=== PATIENT | male | born 1950 | race Caucasian/White ===

== ENCOUNTER 2017-06-09 22:19 | Emergency (ER) | payer MEDICARE ==
[2017-06-09] MEDS ORDERED: MORPHINE IV ONE (23:16)
[2017-06-09] MEDS ORDERED: TORADOL IV ONE (23:16)
[2017-06-09] MEDS ORDERED: ZOFRAN IV ONE (23:17)
[2017-06-09] MEDS ORDERED: LEVAQUIN 500MG/100ML 500 MG/100 ML BAG IV ONE (23:17)
--- NOTE | 2017-06-09 23:19 | Emergency Department Report ---
ED Male HPI - General Chief complaint: Urogenital-Male Stated complaint: URINATING BLOOD Time Seen by Provider: 06/09/17 23:11 Source: EMS, network control technician Mode of arrival: Stretcher Limitations: No Limitations - History of Present Illness Initial comments: 66 YO MALE WITH ONE H/O HEMATURIA AND BLADDER PAIN. PAIN IS 10/10. 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 MAURITANIAN -: Sudden, This afternoon Location: abdomen (SUPRAPUBIC) Radiation: none Severity scale (0 -10): 10 Quality: aching, burning, stabbing Consistency: intermittent Improves with: urination Worsens with: urination blood in urine, dysuria - Related Data Sexually active: Yes Allergies Allergy/AdvReac Type Severity Reaction Status Date / Time pollen extracts Allergy Mild Itching Verified 06/09/17 22:48 ED Review of Systems ROS: Stated complaint: URINATING BLOOD Other details as noted in HPI ED Past Medical Hx - Past Medical History Previous Medical History?: No - Surgical History Past Surgical History?: No - Social History Smoking Status: Current Every Day Smoker Substance Use Type: Alcohol ED Physical Exam - General Limitations: No Limitations General appearance: alert, in distress (SECONDARY TO BLADER SPASMS) - Head Head exam: Present: atraumatic, normocephalic - Eye Eye exam: Present: normal appearance, EOMI - ENT ENT exam: Present: mucous membranes moist - Neck Neck exam: Present: normal inspection, full ROM - Respiratory Respiratory exam: Present: normal lung sounds bilaterally. Absent: respiratory distress - Cardiovascular Cardiovascular Exam: Present: regular rate, normal rhythm. Absent: systolic murmur, diastolic murmur, rubs, gallop - GI/Abdominal GI/Abdominal exam: Present: soft, normal bowel sounds - Rectal Rectal exam: Present: deferred - exam: Absent: circumcision External exam: Present: bleeding (FROM PENIS) - Extremities Exam Extremities exam: Present: normal inspection, full ROM - Back Exam Back exam: Present: normal inspection - Neurological Exam Neurological exam: Present: alert, oriented X3 - Psychiatric Psychiatric exam: Present: normal affect, normal mood - Skin Skin exam: Present: warm, dry, intact, normal color. Absent: rash ED Course Vital Signs 06/09/17 06/10/17 06/10/17 22:56 00:00 01:00 Temperature 98 F Pulse Rate 82 66 74 Respiratory 17 12 14 Rate Blood Pressure 138/79 135/85 Blood Pressure 148/110 [Left] O2 Sat by Pulse 98 97 98 Oximetry 06/10/17 06/10/17 06/10/17 02:01 03:01 04:00 Temperature Pulse Rate 74 111 H 77 Respiratory 10 L 14 11 L Rate Blood Pressure 126/74 153/92 156/84 Blood Pressure [Left] O2 Sat by Pulse 98 99 96 Oximetry 06/10/17 06/10/17 06/10/17 05:37 06:00 07:00 Temperature Pulse Rate 106 H 74 81 Respiratory 21 11 L 14 Rate Blood Pressure 123/71 151/78 113/74 Blood Pressure [Left] O2 Sat by Pulse 98 97 97 Oximetry - Reevaluation(s) Reevaluation #1: 06/10/17 03:[address] SCAN ED Medical Decision Making - Lab Data Result diagrams: 06/09/17 23:25 06/09/17 23:25 - Radiology Data Radiology results: report reviewed (CT ABD/PELVIS; LARGE LIVER MASS PROBABLY HEMANGIOMA) Critical care attestation.: If time is entered above; I have spent that time in minutes in the direct care of this critically ill patient, excluding procedure time. ED Disposition Clinical Impression: Bladder spasms Hematuria Qualifiers: Hematuria type: unspecified type Qualified Code(s): R31.9 - Hematuria, unspecified Disposition: OP ADMIT IP TO THIS HOSP Is pt being admited?: Yes Does the pt Need Aspirin: No Condition: Stable Referrals: GARIMA PRESLEY MD [Primary Care Provider] - 3-5 Days Time of Disposition: 08:20 (DR VEGA WS PAGED AND CASE REVIEWED AND HE DEJUAN ADMIT THE PT TO THE HOSPITAL)
[2017-06-09] MEDS ORDERED: PYRIDIUM PO ONE (23:22)
[2017-06-09 23:28] LABS: Bilirubin,Urine NEG (Negative); Blood,Urine LG (Negative); Color,Urine Red (Yellow); Nitrite,Urine NEG (Negative); Urobilinogen,Urine < 2.0 mg/dL (<2.0)
[2017-06-09 23:32] LABS: RBC,Urine > 182.0 /HPF (0.0-6.0)
[2017-06-09 23:44] LABS: Basophils % (Auto) 0.5 % (0.0-1.8); Eosinophils # (Auto) 0.4 K/mm3 (0.0-0.4); Eosinophils % (Auto) 4.5 % (0.0-4.3); Hematocrit 45.2 % (35.5-45.6); Hemoglobin 14.8 gm/dl (11.8-15.2); Lymphocytes # (Auto) 1.3 K/mm3 (1.2-5.4); Lymphocytes % (Auto) 16.4 % (13.4-35.0); Mean Corpuscular HGB Conc 33 % (32-34); Mean Corpuscular Volume 78 fl (84-94); Monocytes # (Auto) 0.4 K/mm3 (0.0-0.8); Monocytes % (Auto) 5.3 % (0.0-7.3); Platelet Count 189 K/mm3 (140-440); Red Blood Count 5.82 M/mm3 (3.65-5.03); Red Cell Distribution Width 14.4 % (13.2-15.2)
[2017-06-09 23:50] LABS: Mean Corpuscular Hemoglobin 25 pg (28-32)
[2017-06-10 00:08] LABS: Alanine Aminotransferase 15 units/L (7-56); Albumin 3.8 g/dL (3.9-5); BUN/Creatinine Ratio 20; Blood Urea Nitrogen 12 mg/dL (9-20); Calcium 8.6 mg/dL (8.4-10.2); Hemolysis Index 36
[2017-06-10] MEDS ORDERED: NACL 0.9% IR ONE (01:05)
[2017-06-10] MEDS ORDERED: CARDIZEM/D5W 100MG/100ML 100 MG/100 ML BAG IV SCH (03:00)
[2017-06-10] MEDS ORDERED: NACL ONE (04:54)
--- NOTE | 2017-06-10 06:30 | Cat Scan Report ---
FINAL REPORT PROCEDURE: CT ABDOMEN PELVIS W CON TECHNIQUE: Computerized axial tomography of the abdomen and pelvis was performed after the IV injection of iodinated nonionic contrast. HISTORY: ABD PIN,HEMATURIA GROSS COMPARISON: No prior studies are available for comparison. FINDINGS: Visualized lower thorax: There is atelectasis at the right lung base.. Liver: There is a large hypodense mass in the right lobe of the liver measuring up to 7.8 centimeters in diameter. There is peripheral enhancement indicating most likely etiology is a large hemangioma.. Spleen: Normal size and attenuation. Gallbladder and biliary system: Normal. Pancreas: Normal. Adrenals: Normal. Kidneys: Normal. GI tract: There is no bowel obstruction, colitis or enteritis. The appendix is normal.. Lymph nodes and mesentery: Normal. Vasculature: Normal. Bladder: There is dense material in the urinary bladder suggesting recent hemorrhage. There is no obvious mass. Subtle mass not excluded.. Reproductive organs: Prostate gland is enlarged and heterogeneous.. Peritoneum: There is no ascites or free air, abscess or adenopathy.. Musculoskeletal structures: No significant abnormality. Other: None. IMPRESSION: There is a large hypodense mass in the right lobe of the liver measuring up to 7.8 centimeters in diameter. There is peripheral enhancement indicating most likely etiology is a large hemangioma.. There is no bowel obstruction, colitis or enteritis. The appendix is normal.. There is dense material in the urinary bladder suggesting recent hemorrhage. There is no obvious mass. Subtle mass not excluded.. Prostate gland is enlarged and heterogeneous.. There is no ascites or free air, abscess or adenopathy..
[2017-06-10] MEDS ORDERED: MORPHINE IV PRN (08:19)
[2017-06-10] MEDS ORDERED: ZOFRAN IV PRN (08:19)
[2017-06-10] MEDS ORDERED: MILK OF MAGNESIA PO PRN (08:19)
[2017-06-10] MEDS ORDERED: DULCOLAX PR PRN (08:19)
[2017-06-10] MEDS ORDERED: TYLENOL PO PRN (08:19)
--- NOTE | 2017-06-10 08:23 | History and Physical Report ---
History of Present Illness Date of examination: 06/10/17 Date of admission: 06/10/16 Chief complaint: Urinary retention Bloody urine History of present illness: Patient is 66 yo presented with urinary retention, gross hematuria Past History Past Medical History: No medical history Past Surgical History: No surgical history Social history: , smoking, alcohol abuse, full code Family history: no significant family history Medications and Allergies Allergies Allergy/AdvReac Type Severity Reaction Status Date / Time pollen extracts Allergy Mild Itching Verified 06/09/17 22:48 Home Medications Medication Instructions Recorded Confirmed Last Taken Type Unobtainable 06/10/17 06/10/17 Unknown History Exam - Physical Exam Narrative exam: GEN APPEARANCE : Not in acute distress, HEENT: Atraumatic, Normocephalic, NECK : supple, no JVD LUNGS: Clear to auscultation bilaterally, no rales, no wheeze HEART: S1 and S2 regular, no murmurs, rubs or gallop, ABD: Soft, mild tender, non distended, normal bowel sounds EXT: No edema, no clubbing, no cyanosis NEURO: Awake,alert,oriented x 3 - Constitutional Vitals: Temp Pulse Resp BP Pulse Ox 98 F 81 14 113/74 97 06/09/17 22:56 06/10/17 07:00 06/10/17 07:00 06/10/17 07:00 06/10/17 07:00 Results - Labs CBC & Chem 7: 06/10/17 08:35 06/10/17 08:35 Labs: Abnormal lab results 06/09/17 06/09/17 06/09/17 Range/Units 23:03 23:25 23:25 RBC 5.82 H (3.65-5.03) M/mm3 MCV 78 L (84-94) fl MCH 25 L (28-32) pg Eos % (Auto) 4.5 H (0.0-4.3) % Seg Neutrophils % 73.3 H (40.0-70.0) % Creatinine 0.6 L (0.8-1.5) mg/dL Glucose 104 H (75-100) mg/dL Albumin 3.8 L (3.9-5) g/dL Urine pH 8.0 H (5.0-7.0) Assessment and Plan Urinary retention and gross hematuria. Will admit to med/surg . Patient had glez placed irrigated bringing out blood clots,and glez removed. Will insert glez. Consult Urology. Morphine iv prn for pain. DVT prophylaxis with SCDs only. Addendum: There is no Urologist credit union examiner. I called and discussed with Dr. Clark. He is not available. Staff unable to insert glez. Will cancel admission. Transfer to tertiary Center.
[2017-06-10 08:45] LABS: Hematocrit 41.1 % (35.5-45.6); Hemoglobin 13.4 gm/dl (11.8-15.2); Mean Corpuscular HGB Conc 33 % (32-34); Mean Corpuscular Volume 77 fl (84-94); Platelet Count 188 K/mm3 (140-440); Red Blood Count 5.36 M/mm3 (3.65-5.03); Red Cell Distribution Width 14.5 % (13.2-15.2)
[2017-06-10 08:46] LABS: Mean Corpuscular Hemoglobin 25 pg (28-32)
[2017-06-10] MEDS ORDERED: D5/0.45NS 1,000 ML IV SCH (09:00)
[2017-06-10 09:14] LABS: BUN/Creatinine Ratio 20; Blood Urea Nitrogen 12 mg/dL (9-20); Calcium 8.6 mg/dL (8.4-10.2); Hemolysis Index 7
[2017-06-10] MEDS ORDERED: D5/0.45NS 1,000 ML IV ONE (11:43)
--- NOTE | 2017-06-10 14:04 | Event Note ---
Patient with urinary retention, gross hematuria. No Urology coverage available today. I discussed with Dr. Clark. He is not available today. I called [facility] Transfer line to transfer out. Awaiting call back
[2017-06-10 16:15] VITALS: BP 118/78
[2017-06-10] MEDS ORDERED: MORPHINE ONE ×2 (17:22→17:23)
--- NOTE | 2017-06-10 17:36 | Event Note ---
Date: 06/10/17 Discussed with Urologist at [facility] and he has agreed to accept patient to transfer to ED at [facility].
[2017-06-10] MEDS ORDERED: MORPHINE IV ONE ×2 (18:26)
[2017-06-10] MEDS ORDERED: LEVAQUIN 500MG/100ML 500 MG/100 ML BAG IV SCH (23:00)
== END 2017-06-10 19:00 | disposition other institution (70) ==
LOC: ED 22:19 → 3A 06-10 08:19 → UNDOADMIN 06-10 08:19
DX: N32.89 Other specified disorders of bladder (principal); R31.9 Hematuria, unspecified; F17.200 Nicotine dependence, unspecified, uncomplicated; Z88.8 Allergy status to other drugs, medicaments and biological substances
CPT/HCPCS: 36415; 74177; 80048; 80053; 81001; 85025; 85027; 87086; 96365; 96375; 99285; J1885; J1956; J2270; J2405; Q9967

== ENCOUNTER 2018-12-23 19:55 | Inpatient (IN) | payer MEDICARE ==
--- NOTE | 2018-12-23 20:56 | Event Note ---
ED Screening Note ED Screening Note: Plan: 1. I think the burning that patient feels with voiding may be a bladder spasm. UA today is clear without obvious signs of infection. Urine sent for culture to be sure. Explain to patient and his family members that I would not want to give him an anticholinergic at this point as it could cause urinary retention. 2. Discussed fluid management and avoiding bladder irritants. He emptied his bladder fairly well today. 3. Return to clinic in 12 months with urinalysis and postvoid bladder scan. P atient should call return clinic if he has a new or worsening symptoms. HERE WITH ABD PAIN HX HEMATURIA/RETENTION NO HOME MEDS ETOH CIG KENAITZE SEE FAMILY This initial assessment/diagnostic orders/clinical plan/treatment(s) is/are subject to change based on patients health status, clinical progression and re- assessment by fellow clinical providers in the ED. Further treatment and workup at subsequent clinical providers discretion. Patient/guardian urged not to elope from the ED as their condition may be serious if not clinically assessed and managed. Initial orders include: [facility] URINE/CULTURE
[2018-12-23 21:26] LABS: Basophils % (Auto) 0.1 % (0.0-1.8); Eosinophils # (Auto) 0.1 K/mm3 (0.0-0.4); Eosinophils % (Auto) 0.6 % (0.0-4.3); Hematocrit 45.9 % (35.5-45.6); Lymphocytes % (Auto) 9.3 % (13.4-35.0); Mean Corpuscular HGB Conc 33 % (32-34); Mean Corpuscular Volume 79 fl (84-94); Monocytes # (Auto) 0.4 K/mm3 (0.0-0.8); Monocytes % (Auto) 3.4 % (0.0-7.3); Platelet Count 219 K/mm3 (140-440); Red Blood Count 5.77 M/mm3 (3.65-5.03); Red Cell Distribution Width 14.7 % (13.2-15.2)
[2018-12-23] MEDS ORDERED: ZOFRAN IV ONE (21:32)
[2018-12-23] MEDS ORDERED: ROCEPHIN/NS 1 GM/50 ML 1 GM/50 ML BAG IV ONE (21:32)
[2018-12-23] MEDS ORDERED: DILAUDID IV ONE (21:32)
--- NOTE | 2018-12-23 21:34 | Emergency Department Report ---
ED Male HPI - General Chief complaint: Abdominal Pain Stated complaint: ABD PAIN Time Seen by Provider: 12/23/18 20:42 Source: patient, family, EMS Mode of arrival: Wheelchair Limitations: Language Barrier - History of Present Illness Initial comments: 68 -year-old [place] male presents to the hospital complaining of suprapubic pain and inability to void since this a.m. History of urinary retention in the past due to clot retention that was treated with cystoscopy and clot evacuation. Patient was seen here in June 2017 for urinary retention and hematuria requiring subsequent transfer to [facility]. Patient is not currently being seen by [facility] u[facility] is not taking any medications. Patient had a prostate biopsy in the past showing BPH and a TURP in 2014. - Related Data Home Medications Medication Instructions Recorded Confirmed Last Taken No Known Home Medications [No 12/25/18 12/25/18 Unknown Reported Home Medications] Allergies Allergy/AdvReac Type Severity Reaction Status Date / Time pollen extracts Allergy Mild Itching Verified 06/09/17 22:48 ED Review of Systems ROS: Stated complaint: ABD PAIN Other details as noted in HPI Comment: All other systems reviewed and negative ED Past Medical Hx - Past Medical History Previous Medical History?: Yes Hx Kidney Stones: Yes (h/o) - Surgical History Past Surgical History?: Yes Additional Surgical History: kidney sx "for stones and urinary retention", 2018 - Social History Smoking Status: Current Every Day Smoker Substance Use Type: Alcohol - Medications Home Medications: Home Medications Medication Instructions Recorded Confirmed Last Taken Type No Known Home Medications [No 12/25/18 12/25/18 Unknown History Reported Home Medications] ED Physical Exam - General Limitations: Language Barrier - Other Other exam information: General: Positive distress secondary to pain Head exam: Atraumatic, normocephalic Eyes exam: Normal appearance ENT: Moist mucous membrane, normal oropharynx Neck exam: Normal inspection, full range of motion, no meningismus nontender Respiratory exam: Clear to auscultation bilateral, no wheezes, rales, crackles Cardiovascular: Normal rate and rhythm, normal heart sounds Abdomen: Soft, nondistended, suprapubic tenderness, with normal bowel sounds, no rebound, or guarding : Uncircumcised, Glez attempted by RN with drainage of blood-tinged urine Extremity: Full range of motion normal inspection no deformity Back: Normal Inspection, full range of motion, no tenderness Neurologic: Alert, oriented x3, cranial nerves intact, no motor or sensory deficit Psychiatric: normal affect, normal mood Skin: Warm, dry, intact ED Course Vital Signs 12/23/18 12/23/18 12/24/18 20:20 20:47 00:46 Temperature 99.5 F 99.5 F Pulse Rate 88 90 90 Respiratory 18 18 24 Rate Blood Pressure 128/85 128/85 143/95 Blood Pressure [Right] O2 Sat by Pulse 94 94 Oximetry 12/24/18 12/24/18 12/24/18 01:06 01:15 02:00 Temperature Pulse Rate 93 H Respiratory 19 Rate Blood Pressure 130/83 137/89 Blood Pressure 143/95 [Right] O2 Sat by Pulse 95 92 87 Oximetry 12/24/18 12/24/18 12/24/18 02:31 02:32 02:45 Temperature Pulse Rate 90 89 Respiratory 22 22 21 Rate Blood Pressure 141/90 Blood Pressure 128/89 [Right] O2 Sat by Pulse 97 97 96 Oximetry 12/24/18 12/24/18 12/24/18 03:00 03:30 03:58 Temperature Pulse Rate 89 86 87 Respiratory 18 21 18 Rate Blood Pressure 134/93 127/81 Blood Pressure 112/68 [Right] O2 Sat by Pulse 98 98 97 Oximetry 12/24/18 12/24/18 12/24/18 04:00 04:30 04:45 Temperature Pulse Rate 86 92 H 89 Respiratory 20 20 22 Rate Blood Pressure 164/96 122/89 121/81 Blood Pressure [Right] O2 Sat by Pulse 98 Oximetry 12/24/18 12/24/18 12/24/18 04:53 05:15 05:30 Temperature Pulse Rate 87 86 90 Respiratory 19 19 21 Rate Blood Pressure 133/81 131/78 Blood Pressure 121/81 [Right] O2 Sat by Pulse 99 97 98 Oximetry - Reevaluation(s) Reevaluation #1: 12/24/18 02:12 Patient was reexamined after receiving Dilaudid 0.5 mg. He complains of generalized pain to palpation that is worse in the suprapubic area. - Consultations Consultation #1: 12/25/18 Dr Mar regional transfer liaison 23:10, 23:18, 23:25 and we were unable to get a hold of him via cell phone Dr Webb called on his cellphone 00:05 He states to call [facility] to see if they will take the pt since he has been seen by them before. I informed him that he has not be seen by [facility] in the last year and 2. IF they dont take the pt he recommends admission here and he will see pt in the am to place glez. He recommends pain medicine in the meantime. He states creatinine is normal range. I informed him that it double compared to previous value 12/24/18 00:19 [facility] called. awaiting urology call back 12/24/18 00:44 I received [address] Webb stating that we probably injured the urethra during lgez attempts and likely inflated cath in urethra and he plans to call the house rn. I informed him pt did have some bloody urine output initially at the Glez even prior to inflation. Then it stopped the patient had clots coming from around the Glez. Bedside manual Glez irrigation attempted. We were unable to get persistent catheter flow.. Bedside ultrasound shows persistent urine in bladder not emptied by catheter. That is when Glez catheter was removed period initially after removal patient had urine output of bloody urine. Repeat catheterization was attempted with three-way catheter but was unsuccessful. DR Holt is is now requesting his abdomen and pelvis CT and a retrograde urethrogram to rule out urethral injury and informed me that he called the nurse lunchroom supervisor. I informed him that the radiologist is not present to perform retrograde urethragram. I informed him pt has increasing abdominal pain. He rec IV pain medication. 12/24/18 01:20 Dr Holt called again. still awaiting ct read. I informed him of possible free air in abd but i need an official radiology read. I called [facility] to ask for stat read. Dr Holt states surgery may be needed. I need report prior to consult. 12/24/18 01:46 Call back from [facility] urologist DR Buffy liriano or urology. Requests Dr Holt see pt and/or call him directly to discuss pt and need for transfer. 12/24/18 02:05 Case d/w DR Holt, pt no longer a transfer candidate, request Surgey consultation for OR tx 12/24/18 02:10 Case d/w Dr Ramirez, will evaluate ct and calback upon call back rec admission to hospitalist service with surgery and urology consultation 12/25/18 06:05 ED Medical Decision Making - Lab Data Result diagrams: 12/25/18 03:52 12/25/18 03:52 Lab Results 12/23/18 12/23/18 Range/Units 21:07 21:07 WBC 11.0 (4.5-11.0) K/mm3 RBC 5.77 H (3.65-5.03) M/mm3 Hgb 15.0 (11.8-15.2) gm/dl Hct 45.9 H (35.5-45.6) % MCV 79 L (84-94) fl MCH 26 L (28-32) pg MCHC 33 (32-34) % RDW 14.7 (13.2-15.2) % Plt Count 219 (140-440) K/mm3 Lymph % (Auto) 9.3 L (13.4-35.0) % Kidder % (Auto) 3.4 (0.0-7.3) % Eos % (Auto) 0.6 (0.0-4.3) % Baso % (Auto) 0.1 (0.0-1.8) % Lymph # 1.0 L (1.2-5.4) K/mm3 Kidder # 0.4 (0.0-0.8) K/mm3 Eos # 0.1 (0.0-0.4) K/mm3 Baso # 0.0 (0.0-0.1) K/mm3 Seg Neutrophils % 86.6 H (40.0-70.0) % Seg Neutrophils # 9.5 H (1.8-7.7) K/mm3 Sodium 143 (137-145) mmol/L Potassium 3.9 (3.6-5.0) mmol/L Chloride 104.6 (98-107) mmol/L Carbon Dioxide 26 (22-30) mmol/L Anion Gap 16 mmol/L BUN 16 (9-20) mg/dL Creatinine 1.2 (0.8-1.5) mg/dL Estimated GFR > 60 ml/min BUN/Creatinine Ratio 13 % Glucose 137 H (75-100) mg/dL Calcium 9.6 (8.4-10.2) mg/dL - Radiology Data Radiology results: report reviewed CT abdomen pelvis wo con INDICATION / CLINICAL INFORMATION: urine retention, hematuria. TECHNIQUE: All CT scans at this location are performed using CT dose reduction for ALARA by means of automated exposure control. COMPARISON: 06/10/2017 FINDINGS: Limited lower thoracic images show dependent atelectasis in both lower lungs. Note is made of pneumoperitoneum. ABDOMEN: A 7 cm cavernous hemangioma is demonstrated in the posterior segment of the right lobe of the liver. No other hepatic abnormality. The gallbladder appears normal. The spleen, pancreas and kidneys are normal. No evidence of significant small bowel distention. There is a right inguinal hernia containing nonobstructed loop of small bowel. The colon is nondistended. Pelvis: The appendix is normal. The prostate is markedly enlarged. A fluid gas level is seen within the urinary bladder. No abnormal dependent fluid collections are seen in the pelvis. No osseous abnormalities. IMPRESSION: 1. Pneumoperitoneum, etiology is not demonstrated. 2. Right inguinal hernia containing nonobstructed small bowel. 3. Prostate enlargement. 4. Benign cavernous hemangioma the liver. 5. Gas within the urinary bladder, correlate for recent catheterization. - Medical Decision Making Patient presents with abdominal pain and urinary retention with previous history of same. Treated empirically with Rocephin. Surgery and urology has been consulted and patient required surgical treatment. pt will go to the OR. Hospitalist to admit. Dr. Rosas informed - Differential Diagnosis BPH, urinary retention, hematuria, UTI Critical Care Time: No Critical care attestation.: If time is entered above; I have spent that time in minutes in the direct care of this critically ill patient, excluding procedure time. ED Disposition Clinical Impression: Pneumoperitoneum, Urine retention, Enlarged prostate, Right inguinal hernia Disposition: OP ADMIT IP TO THIS HOSP Is pt being admited?: Yes Condition: Stable Time of Disposition: 02:34 (Dr Rosas)
[2018-12-23 21:39] LABS: BUN/Creatinine Ratio 13; Blood Urea Nitrogen 16 mg/dL (9-20); Calcium 9.6 mg/dL (8.4-10.2); Hemolysis Index 6
[2018-12-23] MEDS ORDERED: FLOMAX PO ONE (21:56)
[2018-12-23] MEDS ORDERED: NACL 0.9% 500 ML IR ONE (22:16)
[2018-12-24] MEDS ORDERED: DILAUDID IV ONE (00:42)
--- NOTE | 2018-12-24 01:51 | Cat Scan Report ---
CT abdomen pelvis wo con INDICATION / CLINICAL INFORMATION: urine retention, hematuria. TECHNIQUE: All CT scans at this location are performed using CT dose reduction for ALARA by means of automated e xposure control. COMPARISON: 06/10/2017 FINDINGS: Limited lower thoracic images show dependent atelectasis in both lower lungs. Note is made of pneumoperitoneum. ABDOMEN: A 7 cm cavernous hemangioma is demonstrated in the posterior segment of the right lobe of the liver. No other hepatic abnormality. The gallbladder appears normal. The spleen, pancreas and kidneys are normal. No evidence of significant small bowel distention. There is a right inguinal hernia containing nonobstructed loop of small bowel. The colon is nondistended. Pelvis: The appendix is normal. The prostate is markedly enlarged. A fluid gas level is seen within the urinary bladder. No abnormal dependent fluid collections are seen in the pelvis. No osseous abnormalities. IMPRESSION: 1. Pneumoperitoneum, etiology is not demonstrated. 2. Right inguinal hernia containing nonobstructed small bowel. 3. Prostate enlargement. 4. Benign cavernous hemangioma the liver. 5. Gas within the urinary bladder, correlate for recent catheterization. The referring physician is aware of the pneumoperitoneum. Signer Name: Al Stoner MD Signed: 12/24/2018 1:47 AM Workstation Name: [employer]
[2018-12-24] MEDS ORDERED: TYLENOL PO PRN (02:53)
[2018-12-24] MEDS ORDERED: SODIUM CHLORIDE FLUSH SYRINGE 10 ML IV PRN (02:53)
[2018-12-24] MEDS ORDERED: ZOFRAN IV PRN (02:53)
[2018-12-24] MEDS ORDERED: MORPHINE IV PRN (02:53)
--- NOTE | 2018-12-24 03:03 | History and Physical Report ---
<HERON ARROYO - Last Filed: 12/24/18 03:34> History of Present Illness Date of examination: 12/24/18 Date of admission: 12/24/2018 Chief complaint: Since 4 PM yesterday afternoon inability to void and suprapubic pain History of present illness: 68-year-old [place]cu[place] male who is a ongoing smoker with history of BPH, urinary retention, clot evacuation, status post TURP (2014) who presents to [facility] with c/o suprapubic pain and inability to void. Pt's is present at bedside and has assisted with providing history. According to patient's around 4pm yesterday afternoon patient began complaining of suprapubic pain and inability to void. Patient was seen at [facility] in June 2017 for urinary retention and hematuria requiring subsequent transfer to [place]. Past History Past Medical History: other (kidney stones, history of urinary retention 2014) Past Surgical History: TURP (2014), Other (kidney stones ) Social history: smoking (current active smoker) Family history: no significant family history Medications and Allergies Allergies Allergy/AdvReac Type Severity Reaction Status Date / Time pollen extracts Allergy Mild Itching Verified 06/09/17 22:48 Home Medications Medication Instructions Recorded Confirmed Last Taken Type HYDROcodone/APAP 5-325 [[place] 2 each PO Q6H PRN #14 tablet 12/26/18 Unknown Rx 5-325 mg TAB] Nicotine [Habitrol] 14 mg TD QDAY #7 patch 12/26/18 Unknown Rx Active Meds: Active Medications Acetaminophen (Tylenol) 650 mg PO Q4H PRN PRN Reason: Pain MILD(1-3)/Fever >100.5/KENNY Hydromorphone HCl (Dilaudid) 0.5 mg IV Q3H PRN PRN Reason: Pain , Severe (7-10) Stop: 12/25/18 23:59 Morphine Sulfate (Morphine) 2 mg IV Q4H PRN PRN Reason: Pain, Moderate (4-6) Nicotine (Habitrol) 14 mg TD QDAY CARYL Ondansetron HCl (Zofran) 4 mg IV Q8H PRN PRN Reason: Nausea And Vomiting Sodium Chloride (Sodium Chloride Flush Syringe 10 Ml) 10 ml IV BID CARYL Sodium Chloride (Sodium Chloride Flush Syringe 10 Ml) 10 ml IV PRN PRN PRN Reason: LINE FLUSH Review of Systems All systems: negative (reviewed and no additional remarkable complaints except as noted below) Genitourinary Male: genital pain, urinary retention, other (inability to void) Exam - Physical Exam Narrative exam: Physical exam General appearance: Present: Mild distress, alert and oriented 2, Ecu[place]orean adult male - EENT Eyes: Present: PERRL, EOM intact ENT: hearing intact, normal dentition - Neck Neck: Present: supple, normal ROM - Respiratory Respiratory effort: Non-labored Respiratory: Clear throughout - Cardiovascular Heart rate: 89 (bpm) Rhythm: Sinus rhythm Heart Sounds: Present: S1 & S2. Absent: rub, click - Extremities Extremities: no ischemia, pulses intact - Peripheral Assessment Peripheral Pulses: within normal limits - Abdominal General gastrointestinal: soft, non-tender, normal bowel sounds - Large clots, hematuria, suprapubic intense pain - Integumentary Integumentary: Present: warm, dry - Musculoskeletal Musculoskeletal: generalized weakness - Psychiatric Psychiatric: Withdrawn due to pain - Constitutional Vitals: Temp Pulse Resp BP Pulse Ox 99.5 F 89 21 141/90 96 12/23/18 20:47 12/24/18 02:45 12/24/18 02:45 12/24/18 02:45 12/24/18 02:45 Results - Labs CBC & Chem 7: 12/23/18 21:07 12/23/18 21:07 Labs: Laboratory Last Values WBC 11.0 K/mm3 (4.5-11.0) 12/23/18 21:07 RBC 5.77 M/mm3 (3.65-5.03) H 12/23/18 21:07 Hgb 15.0 gm/dl (11.8-15.2) 12/23/18 21:07 Hct 45.9 % (35.5-45.6) H 12/23/18 21:07 MCV 79 fl (84-94) L 12/23/18 21:07 MCH 26 pg (28-32) L 12/23/18 21:07 MCHC 33 % (32-34) 12/23/18 21:07 RDW 14.7 % (13.2-15.2) 12/23/18 21:07 Plt Count 219 K/mm3 (140-440) 12/23/18 21:07 Lymph % (Auto) 9.3 % (13.4-35.0) L 12/23/18 21:07 [place] % (Auto) 3.4 % (0.0-7.3) 12/23/18 21:07 Eos % (Auto) 0.6 % (0.0-4.3) 12/23/18 21:07 Baso % (Auto) 0.1 % (0.0-1.8) 12/23/18 21:07 Lymph # 1.0 K/mm3 (1.2-5.4) L 12/23/18 21:07 [place] # 0.4 K/mm3 (0.0-0.8) 12/23/18 21:07 Eos # 0.1 K/mm3 (0.0-0.4) 12/23/18 21:07 Baso # 0.0 K/mm3 (0.0-0.1) 12/23/18 21:07 Seg Neutrophils % 86.6 % (40.0-70.0) H 12/23/18 21:07 Seg Neutrophils # 9.5 K/mm3 (1.8-7.7) H 12/23/18 21:07 Sodium 143 mmol/L (137-145) 12/23/18 21:07 Potassium 3.9 mmol/L (3.6-5.0) 12/23/18 21:07 Chloride 104.6 mmol/L (98-107) 12/23/18 21:07 Carbon Dioxide 26 mmol/L (22-30) 12/23/18 21:07 16 mmol/L 12/23/18 21:07 BUN 16 mg/dL (9-20) 12/23/18 21:07 1.2 mg/dL (0.8-1.5) 12/23/18 21:07 Estimated GFR > 60 ml/min 12/23/18 21:07 13 % 12/23/18 21:07 Glucose 137 mg/dL (75-100) H 12/23/18 21:07 Calcium 9.6 mg/dL (8.4-10.2) 12/23/18 21:07 - Imaging and Cardiology Imaging and Cardiology: CT Abd/Pelvis: FINDINGS: Limited lower thoracic images show dependent atelectasis in both lower lungs. Note is made of pneumoperitoneum. ABDOMEN: A 7 cm cavernous hemangioma is demonstrated in the posterior segment of the right lobe of the liver. No other hepatic abnormality. The gallbladder appears normal. The spleen, pancreas and kidneys are normal. No evidence of significant small bowel distention. There is a right inguinal hernia containing nonobstructed loop of small bowel. The colon is nondistended. Pelvis: The appendix is normal. The prostate is markedly enlarged. A fluid gas level is seen within the urinary bladder. No abnormal dependent fluid collections are seen in the pelvis. No osseous abnormalities. IMPRESSION: 1. Pneumoperitoneum, etiology is not demonstrated. 2. Right inguinal hernia containing nonobstructed small bowel. 3. Prostate enlargement. 4. Benign cavernous hemangioma the liver. 5. Gas within the urinary bladder, correlate for recent catheterization. Assessment and Plan Assessment and plan: 68-year-old Ecu[place] male who is a ongoing smoker with history of BPH, urinary retention, clot evacuation, status post TURP (2014) who presents to [facility] with c/o suprapubic pain and inability to void since 4 PM yesterday afternoon. The patient's history of urinary retention and attempt was made to insert Mei and PT. Patient had some bloody urine output initially followed by clots coming from around the Mei. Attempted to irrigate the Mei was unsuccessful subsequently bedside ultrasound was conducted. It showed persistent distended bladder with clots. Ultimately the Mei was removed. Repeat catheterization was attempted with three-way catheter but was unsuccessful. CT Abd/ Pelvis showed Pneumoperitoneum, Right inguinal hernia containing nonobstructed small bowel, Prostate enlargement, and Benign cavernous hemangioma the liver. (urologist) and Dr. Ramirez was consulted. Will admit to Surgical floor for further evaluation and treatment. Pneumoperitoneum Right inguinal hernia containing nonobstructed small bowel. Prostate enlargement Benign cavernous hemangioma the liver Acute suprapubic pain Urinary retention/ inability to void Clot Retention HTN Plan: Continue supportive care Pain management Retrograde urethrogram - pending Urinalysis and urine culture pending collection- unable to collect at this time Abdominal exam q 2hrs Dr. Webb (urology) following Dr. Ramirez (General Surgery) following Monitor BP Hold off starting on antihypertensive, patient is no history of hypertension, elevated BP likely secondary to acute suprapubic pain IV hydralazine when necessary DVT PPX SCD Advance Directives: No VTE prophylaxis?: Mechanical Plan of care discussed with patient/family: Yes <BROOKE PETERSEN - Last Filed: 12/28/18 02:01> Medications and Allergies Active Meds: Active Medications Acetaminophen (Tylenol) 650 mg PO Q4H PRN PRN Reason: Pain MILD(1-3)/Fever >100.5/KENNY Hydralazine HCl (Apresoline) 10 mg IV Q4H PRN PRN Reason: Blood Pressure Hydromorphone HCl (Dilaudid) 0.5 mg IV Q3H PRN PRN Reason: Pain , Severe (7-10) Stop: 12/25/18 23:59 Last Admin: 12/24/18 04:16 Dose: 0.5 mg Documented by: Sodium Chloride (Nacl 0.9% 1000 Ml) 1,000 mls @ 50 mls/hr IV DIRECT CARYL Nicotine (Habitrol) 14 mg TD QDAY CARYL Ondansetron HCl (Zofran) 4 mg IV Q8H PRN PRN Reason: Nausea And Vomiting Sodium Chloride (Sodium Chloride Flush Syringe 10 Ml) 10 ml IV BID CARYL Sodium Chloride (Sodium Chloride Flush Syringe 10 Ml) 10 ml IV PRN PRN PRN Reason: LINE FLUSH Exam - Constitutional Vitals: Temp Pulse Resp BP Pulse Ox 99.5 F 87 19 121/81 99 12/23/18 20:47 12/24/18 04:53 12/24/18 04:53 12/24/18 04:53 12/24/18 04:53 Results - Labs CBC & Chem 7: 12/26/18 04:05 12/26/18 04:05 Labs: Laboratory Last Values WBC 11.0 K/mm3 (4.5-11.0) 12/23/18 21:07 RBC 5.77 M/mm3 (3.65-5.03) H 12/23/18 21:07 Hgb 15.0 gm/dl (11.8-15.2) 12/23/18 21:07 Hct 45.9 % (35.5-45.6) H 12/23/18 21:07 MCV 79 fl (84-94) L 12/23/18 21:07 MCH 26 pg (28-32) L 12/23/18 21:07 MCHC 33 % (32-34) 12/23/18 21:07 RDW 14.7 % (13.2-15.2) 12/23/18 21:07 Plt Count 219 K/mm3 (140-440) 12/23/18 21:07 Lymph % (Auto) 9.3 % (13.4-35.0) L 12/23/18 21:07 [place] % (Auto) 3.4 % (0.0-7.3) 12/23/18 21:07 Eos % (Auto) 0.6 % (0.0-4.3) 12/23/18 21:07 Baso % (Auto) 0.1 % (0.0-1.8) 12/23/18 21:07 Lymph # 1.0 K/mm3 (1.2-5.4) L 12/23/18 21:07 [place] # 0.4 K/mm3 (0.0-0.8) 12/23/18 21:07 Eos # 0.1 K/mm3 (0.0-0.4) 12/23/18 21:07 Baso # 0.0 K/mm3 (0.0-0.1) 12/23/18 21:07 Seg Neutrophils % 86.6 % (40.0-70.0) H 12/23/18 21:07 Seg Neutrophils # 9.5 K/mm3 (1.8-7.7) H 12/23/18 21:07 Sodium 143 mmol/L (137-145) 12/23/18 21:07 Potassium 3.9 mmol/L (3.6-5.0) 12/23/18 21:07 Chloride 104.6 mmol/L (98-107) 12/23/18 21:07 Carbon Dioxide 26 mmol/L (22-30) 12/23/18 21:07 16 mmol/L 12/23/18 21:07 BUN 16 mg/dL (9-20) 12/23/18 21:07 1.2 mg/dL (0.8-1.5) 12/23/18 21:07 Estimated GFR > 60 ml/min 12/23/18 21:07 13 % 12/23/18 21:07 Glucose 137 mg/dL (75-100) H 12/23/18 21:07 Calcium 9.6 mg/dL (8.4-10.2) 12/23/18 21:07 Assessment and Plan Assessment and plan: 68-year-old man with a history of BPH was brought to the emergency room because he was unable to urinate. Attempts were made for a Mei placement without success. CT of the abdomen and pelvis showed gas in the urinary bladder with pneumoperitoneum. Surgery and urology was consulted to see the patient, patient will be taken to the OR. Start gentle IV fluid
[2018-12-24] MEDS ORDERED: APRESOLINE IV PRN (03:26)
[2018-12-24] MEDS: DILAUDID IV PRN ×5 (04:16→19:35)
--- NOTE | 2018-12-24 05:06 | Consultation ---
History of Present Illness Consult date: 12/24/18 Reason for consult: abdominal pain Requesting physician: RIGO JAFFE Chief complaint: abdominal pain - History of present illness History of present illness: 68yo M with a history of urinary obstruction presents with acute onset of urinary obstruction associated with lower abdominal pain. This is similar to last episode of obstruction 2-3 years ago. At that time, he was transferred to [facility] for surgery. Pt denies any upper abdominal pain, F/C/N/V when this started around 4-5pm yesterday afternoon. After initial evaluation here in the ED, glez placement was attempted. It was reported that there was difficulty in placing the glez. Urine and then blood began to drain. The drainage eventually stopped. Dr. Webb was consulted. He recommended a CT in which free air was found. General surgery was consulted for this issue. Pt confirms that his whole abdomen began to hurt only after the glez placement was attempted. Past History Past Medical History: other (kidney stones, history of urinary retention 2014) Past Surgical History: TURP (2015), Other (kidney stones ) Social history: other (drinks 1-2 beers occasionally). denies: smoking ( reports that he stopped after the [place] surgery) Family history: no significant family history Medications and Allergies Allergies Allergy/AdvReac Type Severity Reaction Status Date / Time pollen extracts Allergy Mild Itching Verified 06/09/17 22:48 Home Medications Medication Instructions Recorded Confirmed Last Taken Type Unobtainable 06/10/17 06/10/17 Unknown History Active Meds: Active Medications Acetaminophen (Tylenol) 650 mg PO Q4H PRN PRN Reason: Pain MILD(1-3)/Fever >100.5/KENNY Hydralazine HCl (Apresoline) 10 mg IV Q4H PRN PRN Reason: Blood Pressure Hydromorphone HCl (Dilaudid) 0.5 mg IV Q3H PRN PRN Reason: Pain , Severe (7-10) Stop: 12/25/18 23:59 Last Admin: 12/24/18 04:16 Dose: 0.5 mg Documented by: Morphine Sulfate (Morphine) 2 mg IV Q4H PRN PRN Reason: Pain, Moderate (4-6) Nicotine (Habitrol) 14 mg TD QDAY CARYL Ondansetron HCl (Zofran) 4 mg IV Q8H PRN PRN Reason: Nausea And Vomiting Sodium Chloride (Sodium Chloride Flush Syringe 10 Ml) 10 ml IV BID CARYL Sodium Chloride (Sodium Chloride Flush Syringe 10 Ml) 10 ml IV PRN PRN PRN Reason: LINE FLUSH Review of Systems - Constitutional no fever, no chills, no chronic pain - Cardiovascular no chest pain, no shortness of breath - Respiratory no cough - Gastrointestinal abdominal pain, no nausea, no vomiting, no change in bowel habits - Genitourinary hematuria, urinary retention - Integumentary no rash, no redness, no sores, no wounds Exam Vital Signs Temp Pulse Resp BP Pulse Ox 99.5 F 88 18 128/85 94 12/23/18 20:20 12/23/18 20:20 12/23/18 20:20 12/23/18 20:20 12/23/18 20:20 - General physical appearance Positive: well developed, well nourished, no distress, moderate pain - Eyes Positive: normal occular movement - Respiratory Positive: normal expansion, normal respiratory effort, clear to auscultation - Cardiovascular Rhythm: regular - Abdomen Abdomen: Present: tender (generalized), bowel sounds normal, guarding, rigid, other (warm to the touch). Absent: soft, distended, wound - Integumentary no rash, no growths, no abnormal pigmentation - Neurologic Neurologic: alert and oriented to time, place and person - Psychiatric Psychiatric: appropriate mood/affect, cooperative Results - Labs 12/23/18 21:07 12/23/18 21:07 Abnormal lab results 12/23/18 12/23/18 Range/Units 21:07 21:07 RBC 5.77 H (3.65-5.03) M/mm3 Hct 45.9 H (35.5-45.6) % MCV 79 L (84-94) fl MCH 26 L (28-32) pg Lymph % (Auto) 9.3 L (13.4-35.0) % Lymph # 1.0 L (1.2-5.4) K/mm3 Seg Neutrophils % 86.6 H (40.0-70.0) % Seg Neutrophils # 9.5 H (1.8-7.7) K/mm3 Glucose 137 H (75-100) mg/dL Diabetes panel 12/23/18 Range/Units 21:07 Sodium 143 (137-145) mmol/L Potassium 3.9 (3.6-5.0) mmol/L Chloride 104.6 (98-107) mmol/L Carbon Dioxide 26 (22-30) mmol/L BUN 16 (9-20) mg/dL Creatinine 1.2 (0.8-1.5) mg/dL Glucose 137 H (75-100) mg/dL Calcium 9.6 (8.4-10.2) mg/dL Calcium panel 12/23/18 Range/Units 21:07 Calcium 9.6 (8.4-10.2) mg/dL Pituitary panel 12/23/18 Range/Units 21:07 Sodium 143 (137-145) mmol/L Potassium 3.9 (3.6-5.0) mmol/L Chloride 104.6 (98-107) mmol/L Carbon Dioxide 26 (22-30) mmol/L BUN 16 (9-20) mg/dL Creatinine 1.2 (0.8-1.5) mg/dL Glucose 137 H (75-100) mg/dL Calcium 9.6 (8.4-10.2) mg/dL Adrenal panel 12/23/18 Range/Units 21:07 Sodium 143 (137-145) mmol/L Potassium 3.9 (3.6-5.0) mmol/L Chloride 104.6 (98-107) mmol/L Carbon Dioxide 26 (22-30) mmol/L BUN 16 (9-20) mg/dL Creatinine 1.2 (0.8-1.5) mg/dL Glucose 137 H (75-100) mg/dL Calcium 9.6 (8.4-10.2) mg/dL - Imaging CT scan - abdomen: report reviewed, image reviewed CT scan - pelvis: report reviewed, image reviewed Assessment and Plan - Patient Problems (1) Pneumoperitoneum Current Visit: Yes Status: Acute Plan to address problem: Pt stable. Hemodynamics are normal. Discussed case with Drs. Jaffe and Tracey. Dr. Webb would like me available in the OR in case the free air is not related to a urologic cause. Based on the history, it seems unlikely to be associated with a non-urologic cause, but I will be available as asked. If needed, will plan to do either a diagnostic laparoscopy or exploratory laparotomy. Procedure, risks, benefits discussed with patient and . All questions answered. Consent obtained. Plan is for Dr. Webb to a cystoscopy and possible suprapubic catheter placement. If no urologic abnormality found to explain free air, then I will explore the abdomen. Note: We tried to use the [employer] ux interaction designer line, but over a 45min period, no Somali ux interaction designer could be found. The spoke [place] well enough that we could explain everything in simple terms to both of them. She acknowledged understanding as did he. To OR soon. time=30min
--- NOTE | 2018-12-24 05:09 | Anesthesia Consultation ---
Anesthesia Consult and Med Hx Date of service: 12/24/18 - Airway Anesthetic Teeth Evaluation: Poor ROM Head & Neck: Adequate Mental/Hyoid Distance: Adequate Mallampati Class: Class III Intubation Access Assessment: Possibly Difficult - Pulmonary Exam CTA: Yes - Cardiac Exam Cardiac Exam: RRR - Pre-Operative Health Status ASA Pre-Surgery Classification: ASA2, Emergency Proposed Anesthetic Plan: General - Pulmonary Hx Smoking: Yes Hx Respiratory Symptoms: No - Cardiovascular System Hx Hypertension: No Hx Heart Attack/AMI: No - Central Nervous System CVA: No - Endocrine Hx Renal Disease: No Hx Liver Disease: No Hx Insulin Dependent Diabetes: No Hx Non-Insulin Dependent Diabetes: No Hx Thyroid Disease: No - Hematic Hx Anemia: No - Other Systems Hx Obesity: No - Additional Comments Anesthesia Medical History Comments: PMH smoking, urinary obstruction presenting with suprabupic pain and inability to urinate. Mei catheter attempted in ED with bloody urine output initially then no output. Bladder distend on US. Now scheduled for cystoscopy with possible ex-lap. Plan GETA. Discussed possible post-op ventilation/ICU admission and possible blood product administration pending intraoperative course. [place]ic certified court/medical interpreter via language line unavailable. Patient family member at bedside assisted with translation and signed consent for anesthesia on his behalf after patient provided verbal consent.
--- NOTE | 2018-12-24 05:10 | Anesthesia Day of Surgery ---
Anesthesia Day of Surgery - Day of Surgery Patient Examined: Yes Patient H&P Reviewed: Yes Patient is NPO: Yes (last meal approx 12/23 1200.)
[2018-12-24] MEDS ORDERED: DILAUDID ONE ×2 (05:41→07:56)
[2018-12-24] MEDS ORDERED: DIPRIVAN 10 MG/ML IV ONE (05:41)
[2018-12-24] MEDS ORDERED: ZEMURON IV ONE (05:42)
[2018-12-24] MEDS ORDERED: XYLOCAINE MPF 2% ONE (05:42)
[2018-12-24] MEDS ORDERED: QUELICIN ONE (05:42)
[2018-12-24] MEDS ORDERED: LACTATED RINGERS 1,000 ML ONE ×2 (05:48→08:50)
[2018-12-24] MEDS ORDERED: WATER FOR IRRIG STERILE IR ONE (05:49)
[2018-12-24] MEDS ORDERED: NACL 0.9% IR ONE (05:49)
[2018-12-24] MEDS ORDERED: METHYLENE BLUE IV ONE (05:49)
--- NOTE | 2018-12-24 05:55 | Progress Note ---
Assessment and Plan consult dictated Subjective Date of service: 12/24/18 Principal diagnosis: aur Objective - Constitutional Vitals: Vital Signs - 12hr 12/23/18 12/23/18 12/24/18 20:20 20:47 00:46 Temperature 99.5 F 99.5 F Pulse Rate 88 90 90 Respiratory 18 18 24 Rate Blood Pressure 128/85 128/85 143/95 Blood Pressure [Right] O2 Sat by Pulse 94 94 Oximetry 12/24/18 12/24/18 12/24/18 01:06 01:15 02:00 Temperature Pulse Rate 93 H Respiratory 19 Rate Blood Pressure 130/83 137/89 Blood Pressure 143/95 [Right] O2 Sat by Pulse 95 92 87 Oximetry 12/24/18 12/24/18 12/24/18 02:31 02:32 02:45 Temperature Pulse Rate 90 89 Respiratory 22 22 21 Rate Blood Pressure 141/90 Blood Pressure 128/89 [Right] O2 Sat by Pulse 97 97 96 Oximetry 12/24/18 12/24/18 03:58 04:53 Temperature Pulse Rate 87 87 Respiratory 18 19 Rate Blood Pressure Blood Pressure 112/68 121/81 [Right] O2 Sat by Pulse 97 99 Oximetry - Labs CBC & Chem 7: 12/23/18 21:07 12/23/18 21:07 Labs: Abnormal lab results 12/23/18 12/23/18 Range/Units 21:07 21:07 RBC 5.77 H (3.65-5.03) M/mm3 Hct 45.9 H (35.5-45.6) % MCV 79 L (84-94) fl MCH 26 L (28-32) pg Lymph % (Auto) 9.3 L (13.4-35.0) % Lymph # 1.0 L (1.2-5.4) K/mm3 Seg Neutrophils % 86.6 H (40.0-70.0) % Seg Neutrophils # 9.5 H (1.8-7.7) K/mm3 Glucose 137 H (75-100) mg/dL Medications & Allergies - Medications Allergies/Adverse Reactions: Allergies pollen extracts Allergy (Mild, Verified 06/09/17 22:48) Itching Home Medications: Home Medications Medication Instructions Recorded Confirmed Last Taken Type Unobtainable 06/10/17 06/10/17 Unknown History Active Medications: Generic Name Dose Route Start Last Admin Trade Name Freq PRN Reason Stop Dose Admin Acetaminophen 650 mg 12/24/18 02:53 Tylenol PO Q4H PRN Pain MILD(1-3)/Fever >100.5/KENNY Hydralazine HCl 10 mg 12/24/18 03:26 Apresoline IV Q4H PRN Blood Pressure Hydromorphone HCl 0.5 mg 12/24/18 02:53 12/24/18 04:16 Dilaudid IV 12/25/18 23:59 0.5 mg Q3H PRN Administration Pain , Severe (7-10) Sodium Chloride 1,000 mls @ 50 mls/hr 12/24/18 06:00 Nacl 0.9% 1000 Ml IV DIRECT CARYL Nicotine 14 mg 12/24/18 10:00 Habitrol TD QDAY CARYL Ondansetron HCl 4 mg 12/24/18 02:53 Zofran IV Q8H PRN Nausea And Vomiting Sodium Chloride 10 ml 12/24/18 10:00 Sodium Chloride Flush Syringe 10 Ml IV BID CARYL Sodium Chloride 10 ml 12/24/18 02:53 Sodium Chloride Flush Syringe 10 Ml IV PRN PRN LINE FLUSH
[2018-12-24] MEDS ORDERED: NACL 0.9% 1000 ML 1,000 ML IV SCH (06:00)
--- NOTE | 2018-12-24 06:07 | Consultation ---
HISTORY OF PRESENT ILLNESS: The patient is here with his daughter and he is an 68-year-old gentleman who could not void all day. He was in the Emergency Room having pain starting at about 8:00 p.m. I received a call about 12:15 a.m. that he was having pain and multiple attempts at placing a catheter were unsuccessful. He has been treated at [place] with TURP and clot evacuations, but ended up at the Emergency Room here. Currently, catheter was placed. We thought there was urine output and a balloon was inflated and the irrigation went in, would not come out. CT scan showed free air around the liver and he now presents for exploration. His white count was 11,000. He is afebrile. Creatinine is 1.2, hemoglobin is 15. He has this continued pain and tenderness with the inability to void. PAST MEDICAL HISTORY: Urinary retention. PAST SURGICAL HISTORY: TURP with a followup clot retention. SOCIAL HISTORY: Smoker. FAMILY HISTORY: Negative. ALLERGIES: Negative for medications. MEDICATIONS: None known. REVIEW OF SYSTEMS: Pain. No nausea or vomiting. He had no nausea and vomiting prior, just the inability to void. PHYSICAL EXAMINATION: GENERAL: He is awake. He is cooperative. He is here with his daughter. He is in no distress. ABDOMEN: Diffusely tender. IMPRESSION: Possible urethral trauma, possible bladder perforation. CT scan showed free air for exploration. I recommend a suprapubic tube. No sign of bowel obstruction. There is air in the bladder as well. For suprapubic placement and cystoscopy all risks and implications discussed. [facility]# [id number] ADDIE/GISSEL
[2018-12-24] MEDS ORDERED: METHYLENE BLUE ONE (06:24)
[2018-12-24] MEDS ORDERED: LASIX ONE (06:45)
[2018-12-24] MEDS ORDERED: ROBINUL ONE (07:15)
[2018-12-24] MEDS ORDERED: BLOXIVERZ ONE (07:15)
[2018-12-24] MEDS ORDERED: NACL 0.9% 1000 ML 1,000 ML ONE (07:19)
[2018-12-24] MEDS ORDERED: ZOFRAN ONE (07:25)
--- NOTE | 2018-12-24 07:28 | Post Operative Note ---
Date of procedure: 12/24/18 Pre-op diagnosis: urinary retention pneumoperitoneum Post-op diagnosis: same Findings: small perf urethral trauma Procedure: cysto expl spt Anesthesia: GETA Surgeon: VICKI DING Estimated blood loss: 50-100ml Pathology: none Condition: stable Disposition: PACU
--- NOTE | 2018-12-24 07:47 | Operative Report ---
PREOPERATIVE DIAGNOSES: Urinary retention, urethral trauma, pneumoperitoneum. POSTOPERATIVE DIAGNOSES: Urinary retention, urethral trauma, pneumoperitoneum with evidence of intraperitoneal small bladder perforation with retention and clots. PROCEDURE: Cystoscopy, attempted catheterization, open suprapubic cystostomy with closure of peritonotomy, insertions of Malecot 28-Wolof. SURGEONS: Yogi Webb MD and Dr. Ramirez. ANESTHESIA: General. FINDINGS: This is a gentleman who presented with urinary retention for almost a day. He presented to the Emergency Room at 8:00. We were called about 12:15. CT scan showed pneumoperitoneum. Apparently, a catheter was placed, the balloon was inflated, nothing came out, but lots of irrigation went in. He now presents for treatment. DESCRIPTION OF PROCEDURE: The patient was brought to the operating room and placed on the operating table. Following induction of anesthesia, placed in supine position, prepped and draped in usual sterile fashion. Flexible cystoscopy showed a partially torn urethra. We could not insert a wire. At this point, once we attempted to place the wire, a midline incision was made in the lower abdomen. Bladder was distended. The rectus was opened and divided the fascia and then the muscle was split and opened. A distended bladder was noted. Stay sutures were placed and we made a vesicostomy. Some old clots were noted. At this point, once the bladder which was filled was emptied, we saw that there was a small peritonotomy right at the dome. There was some fluid, which was cloudy, low. This was collected for BUN and creatinine. There was no foul smell. There was no evidence of fecal contamination. At this point, using curved dilators, we were able to get a wire antegrade coming out the meatus. We dilated the urethra in a retrograde fashion and placed a 22 Councill in the urethra. We then put 5 mL in the balloon placed a 28 Malecot and secured that to the bladder. Prostate was quite large, but he did have a bladder neck opening and channel. I suspect most of this retention was from the urethral stricture. At this point, the bladder was closed in 2 layers with Vicryl and chromic and a watertight closure was obtained by irrigating the catheters. Peritonotomy was closed. The patient tolerated the procedure well. Fascia was closed with looped PDS, skin with clips. The suprapubic tube was brought out through a separate stab wound and secured with a small Samuel drain. The patient tolerated the procedure well and brought to recovery room, minimal blood loss, in stable condition. JOB# [id number] ADDIE/GISSEL
[2018-12-24 08:02] LABS: Basophils % (Auto) 0.1 % (0.0-1.8); Hematocrit 45.7 % (35.5-45.6); Lymphocytes % (Auto) 7.3 % (13.4-35.0); Mean Corpuscular HGB Conc 33 % (32-34); Mean Corpuscular Volume 80 fl (84-94); Monocytes # (Auto) 0.6 K/mm3 (0.0-0.8); Monocytes % (Auto) 4.7 % (0.0-7.3); Platelet Count 187 K/mm3 (140-440); Red Blood Count 5.73 M/mm3 (3.65-5.03); Red Cell Distribution Width 14.6 % (13.2-15.2)
[2018-12-24 08:26] LABS: Alanine Aminotransferase 14 units/L (7-56); Albumin 3.9 g/dL (3.9-5); BUN/Creatinine Ratio 16; Blood Urea Nitrogen 19 mg/dL (9-20); Calcium 8.6 mg/dL (8.4-10.2); Hemolysis Index 8
[2018-12-24] MEDS ORDERED: NACL 0.9% ONE (08:49)
[2018-12-24] MEDS ORDERED: AMBIEN PO PRN (09:00)
[2018-12-24] MEDS ORDERED: NARCAN 0.4 MG/1 ML IV PRN (09:00)
[2018-12-24] MEDS: SODIUM CHLORIDE FLUSH SYRINGE 10 ML IV SCH (10:36)
[2018-12-24] MEDS: HABITROL TD SCH (13:36)
--- NOTE | 2018-12-24 14:01 | Post Anesthesia Evaluation ---
- Post Anesthesia Evaluation Patient Participated: Yes Airway Patent: Yes Stable Respiratory Function: Yes Nausea/Vomiting: No Temp > 96.8F: Yes Pain Manageable: Yes Adequeate Hydration: Yes Anesthesia Complications: No
--- NOTE | 2018-12-24 14:22 | Event Note ---
Date: 12/24/18 Patient was seen and evaluated this morning during rounds, patient was alert and oriented. Patient is complaining pain around the groin area. patient has suprapubic an urethral catheter.
[2018-12-24] MEDS: ANCEF/NS 1 GM/50 ML 1 GM/50 ML BAG IV SCH (16:37)
[2018-12-25] MEDS: DILAUDID IV PRN (01:13)
[2018-12-25] MEDS: NACL 0.9% IR SCH ×2 (01:13→04:46)
[2018-12-25] MEDS: ANCEF/NS 1 GM/50 ML 1 GM/50 ML BAG IV SCH (01:14)
[2018-12-25] MEDS: SODIUM CHLORIDE FLUSH SYRINGE 10 ML IV SCH ×2 (01:16→09:19)
[2018-12-25 04:33] LABS: Basophils % (Auto) 0.1 % (0.0-1.8); Eosinophils % (Auto) 0.1 % (0.0-4.3); Hematocrit 38.1 % (35.5-45.6); Hemoglobin 12.6 gm/dl (11.8-15.2); Lymphocytes % (Auto) 9.8 % (13.4-35.0); Mean Corpuscular HGB Conc 33 % (32-34); Mean Corpuscular Volume 80 fl (84-94); Monocytes # (Auto) 0.5 K/mm3 (0.0-0.8); Monocytes % (Auto) 5.3 % (0.0-7.3); Platelet Count 167 K/mm3 (140-440); Red Blood Count 4.77 M/mm3 (3.65-5.03); Red Cell Distribution Width 14.6 % (13.2-15.2)
[2018-12-25 04:42] LABS: BUN/Creatinine Ratio 20; Blood Urea Nitrogen 18 mg/dL (9-20); Calcium 7.9 mg/dL (8.4-10.2); Hemolysis Index 14
[2018-12-25] MEDS: NORCO 5/325 PO PRN ×2 (09:17→19:01)
--- NOTE | 2018-12-25 09:46 | XRay Report ---
Abdomen 1 view History: pneumoperitonium Comparison: 12/24/2018 CT Findings: Midline lower abdominal skin win and a left sided drainage catheter in the pelvis. Mode rate distention of the colon and mild distention of small bowel loops. No definitive free air. No r adiopaque calculi are noted. Impression: Mild postop ileus. Signer Name: Candido Jackman MD Signed: 12/25/2018 9:41 AM Workstation Name: [id number]
--- NOTE | 2018-12-25 09:56 | Progress Note ---
Assessment and Plan - Patient Problems (1) Pneumoperitoneum Current Visit: Yes Status: Acute Plan to address problem: Pt stable. Based on yesterday's events, I feel more confident the pneumoperitoneum was related to a problem. If there was an intestinal issue, he should be getting worse at this point. He looks much better today. His abdominal exam is much better. Strongly recommended to patient and that he must ambulate. He is reluctant due to the pain from the catheter. I have no further recommendations from a general surgery standpoint. If there are questions, please call. time=10min Subjective Date of service: 12/25/18 Patient Reports: Positive: no new complaints, still having pain (but resolves with IV pain meds), other (tolerating orange juice. catheter hurts) Objective Vital Signs - 12hr 12/25/18 12/25/18 12/25/18 00:00 05:00 07:00 Temperature 99.1 F 99.3 F 99.1 F Pulse Rate 91 H 79 76 Respiratory 20 1 L 18 Rate Blood Pressure 104/64 98/55 Blood Pressure 91/57 [Right] O2 Sat by Pulse 94 94 Oximetry 12/25/18 12/25/18 07:24 08:30 Temperature Pulse Rate 85 Respiratory Rate Blood Pressure Blood Pressure [Right] O2 Sat by Pulse 92 97 Oximetry - General physical appearance no distress, no pain, other (looks much better) - Eyes normal occular movement - Respiratory normal expansion, normal respiratory effort - Abdomen soft (much improved!), tender (much less), bowel sounds hypoactive, not distended, not guarding, not rigid - Labs 12/25/18 03:52 12/25/18 03:52 Diabetes panel 12/25/18 Range/Units 03:52 Sodium 139 (137-145) mmol/L Potassium 4.2 (3.6-5.0) mmol/L Chloride 102.8 (98-107) mmol/L Carbon Dioxide 26 (22-30) mmol/L BUN 18 (9-20) mg/dL Creatinine 0.9 (0.8-1.5) mg/dL Glucose 153 H (75-100) mg/dL Calcium 7.9 L (8.4-10.2) mg/dL Calcium panel 12/25/18 Range/Units 03:52 Calcium 7.9 L (8.4-10.2) mg/dL Pituitary panel 12/25/18 Range/Units 03:52 Sodium 139 (137-145) mmol/L Potassium 4.2 (3.6-5.0) mmol/L Chloride 102.8 (98-107) mmol/L Carbon Dioxide 26 (22-30) mmol/L BUN 18 (9-20) mg/dL Creatinine 0.9 (0.8-1.5) mg/dL Glucose 153 H (75-100) mg/dL Calcium 7.9 L (8.4-10.2) mg/dL Adrenal panel 12/25/18 Range/Units 03:52 Sodium 139 (137-145) mmol/L Potassium 4.2 (3.6-5.0) mmol/L Chloride 102.8 (98-107) mmol/L Carbon Dioxide 26 (22-30) mmol/L BUN 18 (9-20) mg/dL Creatinine 0.9 (0.8-1.5) mg/dL Glucose 153 H (75-100) mg/dL Calcium 7.9 L (8.4-10.2) mg/dL
[2018-12-25] MEDS: HABITROL TD SCH (10:00)
--- NOTE | 2018-12-25 11:44 | Progress Note ---
Subjective Date of service: 12/25/18 Principal diagnosis: aur Interval history: retention cysto expl spt 12-24-18-- Dr. Jonathon glez & spt clear stop murphydrip ambulte home tomorrow?? female at bedside Objective - Constitutional Vitals: Vital Signs - 12hr 12/25/18 12/25/18 12/25/18 00:00 05:00 07:00 Temperature 99.1 F 99.3 F 99.1 F Pulse Rate 91 H 79 76 Respiratory 20 1 L 18 Rate Blood Pressure 104/64 98/55 Blood Pressure 91/57 [Right] O2 Sat by Pulse 94 94 Oximetry 12/25/18 12/25/18 07:24 08:30 Temperature Pulse Rate 85 Respiratory Rate Blood Pressure Blood Pressure [Right] O2 Sat by Pulse 92 97 Oximetry - Labs CBC & Chem 7: 12/25/18 03:52 12/25/18 03:52 Labs: Abnormal lab results 12/25/18 12/25/18 Range/Units 03:52 03:52 MCV 80 L (84-94) fl MCH 26 L (28-32) pg Lymph % (Auto) 9.8 L (13.4-35.0) % Lymph # 1.0 L (1.2-5.4) K/mm3 Seg Neutrophils % 84.7 H (40.0-70.0) % Seg Neutrophils # 8.6 H (1.8-7.7) K/mm3 Glucose 153 H (75-100) mg/dL Calcium 7.9 L (8.4-10.2) mg/dL Medications & Allergies - Medications Allergies/Adverse Reactions: Allergies pollen extracts Allergy (Mild, Verified 06/09/17 22:48) Itching Home Medications: Home Medications Medication Instructions Recorded Confirmed Last Taken Type No Known Home Medications [No 12/25/18 12/25/18 Unknown History Reported Home Medications] Active Medications: Generic Name Dose Route Start Last Admin Trade Name Freq PRN Reason Stop Dose Admin Acetaminophen 650 mg 12/24/18 02:53 Tylenol PO Q4H PRN Pain MILD(1-3)/Fever >100.5/KENNY Acetaminophen/Hydrocodone Bitart 2 each 12/24/18 09:00 12/25/18 09:17 [place] 5/325 PO 2 each Q6H PRN Administration Pain, Moderate (4-6) Hydralazine HCl 10 mg 12/24/18 03:26 Apresoline IV Q4H PRN Blood Pressure Hydromorphone HCl 0.5 mg 12/24/18 02:53 12/25/18 01:13 Dilaudid IV 12/25/18 23:59 0.5 mg Q3H PRN Administration Pain , Severe (7-10) Sodium Chloride 1,000 mls @ 50 mls/hr 12/24/18 06:00 Nacl 0.9% 1000 Ml IV DIRECT CARYL Potassium Chloride/Dextrose/Sod Cl 20 meq in 1,000 mls @ 125 mls/hr 12/24/18 09:00 D5w/0.45% Nacl/Kcl 20 Meq IV DIRECT CARYL Naloxone HCl 0.1 mg 12/24/18 09:00 Narcan 0.4 Mg/1 Ml IV Q2MIN PRN Res Rate </= 8 or 02 SAT < 92% Nicotine 14 mg 12/24/18 10:00 12/24/18 13:36 Habitrol TD Not Given QDAY CARYL Ondansetron HCl 4 mg 12/24/18 02:53 Zofran IV Q8H PRN Nausea And Vomiting Sodium Chloride 10 ml 12/24/18 10:00 12/25/18 09:19 Sodium Chloride Flush Syringe 10 Ml IV 10 ml BID CARYL Administration Sodium Chloride 10 ml 12/24/18 02:53 Sodium Chloride Flush Syringe 10 Ml IV PRN PRN LINE FLUSH Sodium Chloride 2,000 ml 12/24/18 09:00 12/25/18 04:46 Nacl 0.9% IR 2,000 ml DIRECT CARYL Administration Zolpidem Tartrate 5 mg 12/24/18 09:00 Ambien PO QHS PRN Sleep
--- NOTE | 2018-12-25 17:08 | Progress Note ---
Assessment and Plan Assessment and plan: Urinary retention Pneumoperitoneum Small perforated urethral trauma - Patient was taken to the OR urology suprapubic and urethral catheter was placed - Gen. surgery so the patient and the pneumoperitoneum is due to the perforated urethra and recommend no further intervention - Patient is doing well - KUB today showed ileus was in the room and she speak Pan[place]ian DVT prophylaxis Disposition; possible discharge tomorrow History Interval history: Indocin and vital to this morning, patient's bladder pain is getting better. Hospitalist Physical - Physical exam Narrative exam: Not in cardiopulmonary distress. The patient appeared well nourished and normally developed. Vital signs as documented. Head exam is unremarkable. No scleral icterus . Neck is without jugular venous distension, thyromegaly, or carotid bruits. Lungs are clear to auscultation. Cardiac exam reveals regular rate and Rhythm. First and second heart sounds normal. No murmurs, rubs or gallops. Abdominal exam reveals normal bowel sounds, no masses, no organomegaly and no aortic enlargement. Extremities are nonedematous and both femoral and pedal pulses are normal. supra pubic and glez catheter in place. TAR ROOFER: Alert and oriented 3. No focal weakness. - Constitutional Vitals: Temp Pulse Resp BP Pulse Ox 99.4 F 76 18 110/61 97 12/25/18 11:25 12/25/18 11:26 12/25/18 11:25 12/25/18 11:25 12/25/18 11:26 Results - Labs CBC & Chem 7: 12/25/18 03:52 12/25/18 03:52 Labs: Laboratory Last Values WBC 10.1 K/mm3 (4.5-11.0) 12/25/18 03:52 RBC 4.77 M/mm3 (3.65-5.03) 12/25/18 03:52 Hgb 12.6 gm/dl (11.8-15.2) 12/25/18 03:52 Hct 38.1 % (35.5-45.6) D 12/25/18 03:52 MCV 80 fl (84-94) L 12/25/18 03:52 MCH 26 pg (28-32) L 12/25/18 03:52 MCHC 33 % (32-34) 12/25/18 03:52 RDW 14.6 % (13.2-15.2) 12/25/18 03:52 Plt Count 167 K/mm3 (140-440) 12/25/18 03:52 Lymph % (Auto) 9.8 % (13.4-35.0) L 12/25/18 03:52 [place] % (Auto) 5.3 % (0.0-7.3) 12/25/18 03:52 Eos % (Auto) 0.1 % (0.0-4.3) 12/25/18 03:52 Baso % (Auto) 0.1 % (0.0-1.8) 12/25/18 03:52 Lymph # 1.0 K/mm3 (1.2-5.4) L 12/25/18 03:52 [place] # 0.5 K/mm3 (0.0-0.8) 12/25/18 03:52 Eos # 0.0 K/mm3 (0.0-0.4) 12/25/18 03:52 Baso # 0.0 K/mm3 (0.0-0.1) 12/25/18 03:52 Seg Neutrophils % 84.7 % (40.0-70.0) H 12/25/18 03:52 Seg Neutrophils # 8.6 K/mm3 (1.8-7.7) H 12/25/18 03:52 Sodium 139 mmol/L (137-145) 12/25/18 03:52 Potassium 4.2 mmol/L (3.6-5.0) 12/25/18 03:52 Chloride 102.8 mmol/L (98-107) 12/25/18 03:52 Carbon Dioxide 26 mmol/L (22-30) 12/25/18 03:52 14 mmol/L 12/25/18 03:52 BUN 18 mg/dL (9-20) 12/25/18 03:52 0.9 mg/dL (0.8-1.5) 12/25/18 03:52 Estimated GFR > 60 ml/min 12/25/18 03:52 20 % 12/25/18 03:52 Glucose 153 mg/dL (75-100) H 12/25/18 03:52 Calcium 7.9 mg/dL (8.4-10.2) L 12/25/18 03:52 0.40 mg/dL (0.1-1.2) 12/24/18 07:42 AST 24 units/L (5-40) 12/24/18 07:42 ALT 14 units/L (7-56) 12/24/18 07:42 47 units/L (35-129) 12/24/18 07:42 7.6 g/dL (6.3-8.2) 12/24/18 07:42 3.9 g/dL (3.9-5) 12/24/18 07:42 1.1 % 12/24/18 07:42 Blood Type A POSITIVE 12/24/18 05:00 Antibody Screen Negative 12/24/18 05:00 Active Medications - Current Medications Current Medications: Generic Name Dose Route Start Last Admin Trade Name Freq PRN Reason Stop Dose Admin Acetaminophen 650 mg 12/24/18 02:53 Tylenol PO Q4H PRN Pain MILD(1-3)/Fever >100.5/KENNY Acetaminophen/Hydrocodone Bitart 2 each 12/24/18 09:00 12/25/18 09:17 [place] 5/325 PO 2 each Q6H PRN Administration Pain, Moderate (4-6) Hydralazine HCl 10 mg 12/24/18 03:26 Apresoline IV Q4H PRN Blood Pressure Hydromorphone HCl 0.5 mg 12/24/18 02:53 12/25/18 01:13 Dilaudid IV 12/25/18 23:59 0.5 mg Q3H PRN Administration Pain , Severe (7-10) Sodium Chloride 1,000 mls @ 50 mls/hr 12/24/18 06:00 Nacl 0.9% 1000 Ml IV DIRECT CARYL Potassium Chloride/Dextrose/Sod Cl 20 meq in 1,000 mls @ 125 mls/hr 12/24/18 09:00 D5w/0.45% Nacl/Kcl 20 Meq IV DIRECT CARYL Naloxone HCl 0.1 mg 12/24/18 09:00 Narcan 0.4 Mg/1 Ml IV Q2MIN PRN Res Rate </= 8 or 02 SAT < 92% Nicotine 14 mg 12/24/18 10:00 12/25/18 10:00 Habitrol TD Not Given QDAY CARYL Ondansetron HCl 4 mg 12/24/18 02:53 Zofran IV Q8H PRN Nausea And Vomiting Sodium Chloride 10 ml 12/24/18 10:00 12/25/18 09:19 Sodium Chloride Flush Syringe 10 Ml IV 10 ml BID CARYL Administration Sodium Chloride 10 ml 12/24/18 02:53 Sodium Chloride Flush Syringe 10 Ml IV PRN PRN LINE FLUSH Sodium Chloride 2,000 ml 12/24/18 09:00 12/25/18 04:46 Nacl 0.9% IR 2,000 ml DIRECT CARYL Administration Zolpidem Tartrate 5 mg 12/24/18 09:00 Ambien PO QHS PRN Sleep
[2018-12-25] MEDS: D5W/0.45% NACL/KCL 20 MEQ 20 MEQ/1,000 ML BAG IV SCH (19:05)
[2018-12-26] MEDS: SODIUM CHLORIDE FLUSH SYRINGE 10 ML IV SCH ×2 (00:48→09:11)
[2018-12-26] MEDS: NORCO 5/325 PO PRN ×2 (02:15→09:13)
[2018-12-26 04:58] LABS: Basophils % (Auto) 0.1 % (0.0-1.8); Eosinophils # (Auto) 0.1 K/mm3 (0.0-0.4); Eosinophils % (Auto) 0.7 % (0.0-4.3); Hematocrit 36.3 % (35.5-45.6); Hemoglobin 11.9 gm/dl (11.8-15.2); Lymphocytes # (Auto) 0.8 K/mm3 (1.2-5.4); Mean Corpuscular HGB Conc 33 % (32-34); Mean Corpuscular Volume 80 fl (84-94); Monocytes # (Auto) 0.6 K/mm3 (0.0-0.8); Monocytes % (Auto) 6.5 % (0.0-7.3); Platelet Count 161 K/mm3 (140-440); Red Blood Count 4.52 M/mm3 (3.65-5.03); Red Cell Distribution Width 14.1 % (13.2-15.2)
[2018-12-26 05:02] LABS: BUN/Creatinine Ratio 18; Blood Urea Nitrogen 14 mg/dL (9-20); Hemolysis Index 40
[2018-12-26] MEDS: HABITROL TD SCH (09:06)
[2018-12-26] MEDS: D5W/0.45% NACL/KCL 20 MEQ 20 MEQ/1,000 ML BAG IV SCH (09:20)
--- NOTE | 2018-12-26 10:21 | Discharge Summary ---
Providers - Providers Date of Admission: 12/24/18 02:53 Date of discharge: 12/26/18 Attending physician: BENJIE ORTIZ MD 12/24/18 02:27 Consult to Physician [CONS] Urgent Comment: Dr. Jaffe spoke with Dr. Ding @ 0012 Consulting Provider: VICKI DING Physician Instructions: Reason For Exam: urine retention 12/24/18 02:28 Consult to Physician [CONS] Urgent Comment: Dr. Jaffe spoke with Dr. Ramirez @ 0204 Consulting Provider: JACOB RAMIREZ Physician Instructions: Reason For Exam: pneumoperitoneal [facility] Reason for admission: Perforated urethra, SIRS non infectious Condition: Stable Procedures: Suprapubic catheter Hospital course: 68-year-old [place] Islander male who is a ongoing smoker with history of BPH, urinary retention, clot evacuation, status post TURP (2014) who presents to [facility] ED with c/o suprapubic pain and inability to void. Pt's is present at bedside and has assisted with providing history. According to patient's around 4pm yesterday afternoon patient began complaining of suprapubic pain and inability to void. Patient was seen at [facility] in June 2017 for urinary retention and hematuria requiring subsequent transfer to [place]. Patient was admitted to the floor for pneumoperitoneum and suprapubic pain. Urology was consulted and cystoscopy and found out to have perforated urethra. They placed suprapubic catheter and glez catheter and cleared him for discharge. Pneumoperitonium resolved and likely due to his urologic problem and surgery cleared him. patient had SIRS non infectious which was resolved at the time of discharge. patient scheduled to see urology in 1 week. Disposition: DC-30 STILL A PATIENT Time spent for discharge: 32 minutes - Discharge Diagnoses (1) Pneumoperitoneum Status: Acute (2) Urine retention Status: Acute (3) Bladder spasms Status: Acute (4) Hematuria Status: Acute Qualifiers: Hematuria type: unspecified type Qualified Code(s): R31.9 - Hematuria, unspecified (5) SIRS due to non-infectious process without acute organ dysfunction Status: Acute Core Measure Documentation - Palliative Care Palliative Care/ Comfort Measures: Not Applicable - Core Measures Any of the following diagnoses?: none Exam - Physical Exam Narrative exam: Not in cardiopulmonary distress. The patient appeared well nourished and normally developed. Vital signs as documented. Head exam is unremarkable. No scleral icterus . Neck is without jugular venous distension, thyromegaly, or carotid bruits. Lungs are clear to auscultation. Cardiac exam reveals regular rate and Rhythm. First and second heart sounds normal. No murmurs, rubs or gallops. Abdominal exam reveals normal bowel sounds, no masses, no organomegaly and no aortic enlargement. Extremities are nonedematous and both femoral and pedal pulses are normal. supra pubic and glez catheter in place. PLATFORM ENGINEER: Alert and oriented 3. No focal weakness. - Constitutional Vitals: Temp Pulse Resp BP Pulse Ox 97.8 F 72 18 124/70 97 12/26/18 07:39 12/26/18 07:39 12/26/18 07:39 12/26/18 07:37 12/26/18 10:00 Plan Activity: no restrictions Weight Bearing Status: Full Weight Bearing Diet: regular Follow up with: [facility]A [facility] MD GARRETT [Primary Care Provider] - 7 Days VICKI DING MD [Staff Physician] - 7 Days Prescriptions: Nicotine [Habitrol] 14 mg TD QDAY #7 patch HYDROcodone/APAP 5-325 [[place] 5-325 mg TAB] 2 each PO Q6H PRN #14 tablet PRN Reason: Pain, Moderate (4-6)
[2018-12-26 11:48] VITALS: BP 132/73
[2018-12-26] MEDS ORDERED: DITROPAN XL PO NR (12:17)
--- NOTE | 2018-12-26 13:33 | Progress Note ---
Subjective Date of service: 12/26/18 Principal diagnosis: aur Interval history: retention cysto expl spt 12-24-18-- Dr. Holt removed anuj glez & spt pink urine + bladder spasms stop murphydrip home with glez to bag & spt plugged bactrim, norco, ditropan on chart ok to shower, no baths female at bedside Objective - Constitutional Vitals: Vital Signs - 12hr 12/26/18 12/26/18 12/26/18 02:15 03:51 07:37 Temperature 99.1 F Pulse Rate 86 70 Respiratory 17 18 Rate Blood Pressure 97/58 124/70 Blood Pressure [Right] O2 Sat by Pulse 94 99 Oximetry 12/26/18 12/26/18 12/26/18 07:39 10:00 11:22 Temperature 97.8 F Pulse Rate 72 83 Respiratory 18 Rate Blood Pressure Blood Pressure [Right] O2 Sat by Pulse 98 97 98 Oximetry 12/26/18 11:46 Temperature 98.3 F Pulse Rate 86 Respiratory 18 Rate Blood Pressure Blood Pressure 132/73 [Right] O2 Sat by Pulse Oximetry - Labs CBC & Chem 7: 12/26/18 04:05 12/26/18 04:05 Labs: Abnormal lab results 12/26/18 12/26/18 Range/Units 04:05 04:05 MCV 80 L (84-94) fl MCH 26 L (28-32) pg Lymph % (Auto) 9.0 L (13.4-35.0) % Lymph # 0.8 L (1.2-5.4) K/mm3 Seg Neutrophils % 83.7 H (40.0-70.0) % Seg Neutrophils # 7.9 H (1.8-7.7) K/mm3 Glucose 133 H (75-100) mg/dL Calcium 8.0 L (8.4-10.2) mg/dL Medications & Allergies - Medications Allergies/Adverse Reactions: Allergies pollen extracts Allergy (Mild, Verified 06/09/17 22:48) Itching Home Medications: Home Medications Medication Instructions Recorded Confirmed Last Taken Type HYDROcodone/APAP 5-325 [[place] 2 each PO Q6H PRN #14 tablet 12/26/18 Unknown Rx 5-325 mg TAB] Nicotine [Habitrol] 14 mg TD QDAY #7 patch 12/26/18 Unknown Rx Active Medications: Generic Name Dose Route Start Last Admin Trade Name Freq PRN Reason Stop Dose Admin Acetaminophen 650 mg 12/24/18 02:53 Tylenol PO Q4H PRN Pain MILD(1-3)/Fever >100.5/KENNY Acetaminophen/Hydrocodone Bitart 2 each 12/24/18 09:00 12/26/18 09:13 [place] 5/325 PO 2 each Q6H PRN Administration Pain, Moderate (4-6) Hydralazine HCl 10 mg 12/24/18 03:26 Apresoline IV Q4H PRN Blood Pressure Sodium Chloride 1,000 mls @ 50 mls/hr 12/24/18 06:00 Nacl 0.9% 1000 Ml IV DIRECT CARYL Potassium Chloride/Dextrose/Sod Cl 20 meq in 1,000 mls @ 125 mls/hr 12/24/18 09:00 12/26/18 09:20 D5w/0.45% Nacl/Kcl 20 Meq IV 125 mls/hr DIRECT CARYL Administration Naloxone HCl 0.1 mg 12/24/18 09:00 Narcan 0.4 Mg/1 Ml IV Q2MIN PRN Res Rate </= 8 or 02 SAT < 92% Nicotine 14 mg 12/24/18 10:00 12/26/18 09:06 Habitrol TD Not Given QDAY CARYL Ondansetron HCl 4 mg 12/24/18 02:53 Zofran IV Q8H PRN Nausea And Vomiting Sodium Chloride 10 ml 12/24/18 10:00 12/26/18 00:48 Sodium Chloride Flush Syringe 10 Ml IV Not Given BID CARYL Sodium Chloride 10 ml 12/24/18 02:53 Sodium Chloride Flush Syringe 10 Ml IV PRN PRN LINE FLUSH Sodium Chloride 2,000 ml 12/24/18 09:00 12/25/18 04:46 Nacl 0.9% IR 2,000 ml DIRECT CARYL Administration Zolpidem Tartrate 5 mg 12/24/18 09:00 Ambien PO QHS PRN Sleep
[2018-12-27] MEDS ORDERED: DITROPAN XL PO ONE (13:06)
== END 2018-12-26 15:25 | disposition home or self-care (01) | DRG 663 ==
LOC: ED 19:55 → 3B-SURG 12-24 02:53
PROVIDERS: ADMIT Internal Medicine; ATTEND Internal Medicine
PROC: 0TJB8ZZ Inspection of Bladder, Via Natural or Artificial Opening Endoscopic (ICD-10-PCS; principal; 2018-12-24)
PROC: 0T9B00Z Drainage of Bladder with Drainage Device, Open Approach (ICD-10-PCS; 2018-12-24)
DX: N36.8 Other specified disorders of urethra (principal); R65.10 Systemic inflammatory response syndrome (SIRS) of non-infectious origin without acute organ dysfunction; S37.39XA Other injury of urethra, initial encounter; N40.1 Benign prostatic hyperplasia with lower urinary tract symptoms; K66.8 Other specified disorders of peritoneum; R31.9 Hematuria, unspecified; N32.89 Other specified disorders of bladder; R33.8 Other retention of urine; F17.210 Nicotine dependence, cigarettes, uncomplicated; N35.919 Unspecified urethral stricture, male, unspecified site; K40.90 Unilateral inguinal hernia, without obstruction or gangrene, not specified as recurrent; I10 Essential (primary) hypertension; X58.XXXA Exposure to other specified factors, initial encounter; Y93.89 Activity, other specified; Y92.89 Other specified places as the place of occurrence of the external cause; Y99.8 Other external cause status; D18.09 Hemangioma of other sites
CPT/HCPCS: 36415; 74018; 74176; 80048; 80053; 85025; 86850; 86900; 86901; 94760; G0378; A4217; C1726; J0330; J0690; J0696; J1170; J1940; J2405; J2704; J2710; J7030; J7120; Q9968

== ENCOUNTER 2018-12-29 19:02 | Inpatient (IN) | payer MEDICARE ==
[2018-12-29] MEDS ORDERED: MORPHINE IV ONE (20:16)
[2018-12-29] MEDS ORDERED: ZOFRAN IV ONE (20:16)
--- NOTE | 2018-12-29 20:21 | Emergency Department Report ---
ED Abdominal Pain HPI - General Chief Complaint: Abdominal Pain Stated Complaint: DIFFICULTY URINATING Time Seen by Provider: 12/29/18 20:11 Source: family, EMS Mode of arrival: Stretcher Limitations: No Limitations - History of Present Illness Initial Comments: Patient is 68 years old male with history of BPH who recently discharged from the hospital after he was admitted for acute urine retention and found to have new pneumoperitoneum which resolved by itself before discharge. Patient presented today with abdominal pain started last night, suprapubic in nature, patient stated that patient radiated down to his legs patient denied any fever, chills, nausea or vomiting. He stated that it hurt when he tried to urinate. MD Complaint: abdominal pain -: Last night Location: suprapubic Radiation: other (b/l legs) Migration to: no migration Severity: moderate Severity scale (0 -10): 6 Quality: sharp - Related Data Previous Rx's Medication Instructions Recorded Last Taken Type HYDROcodone/APAP 5-325 [[place] 2 each PO Q6H PRN #14 tablet 12/26/18 Unknown Rx 5-325 mg TAB] Nicotine [Habitrol] 14 mg TD QDAY #7 patch 12/26/18 Unknown Rx Allergies Allergy/AdvReac Type Severity Reaction Status Date / Time pollen extracts Allergy Mild Itching Verified 06/09/17 22:48 ED Review of Systems ROS: Stated complaint: DIFFICULTY URINATING Other details as noted in HPI Comment: All other systems reviewed and negative Constitutional: denies: chills Cardiovascular: denies: chest pain, palpitations Gastrointestinal: abdominal pain. denies: nausea, vomiting, diarrhea, constipation, hematemesis Genitourinary: dysuria. denies: testicular pain, testicular mass Neurological: denies: headache, weakness ED Past Medical Hx - Past Medical History Previous Medical History?: Yes Hx Hypertension: No Hx Heart Attack/AMI: No Hx Liver Disease: No Hx Renal Disease: No Hx Kidney Stones: Yes (h/o) - Surgical History Past Surgical History?: Yes Additional Surgical History: kidney sx "for stones and urinary retention", 2018. suprapubic catheter placement - Social History Smoking Status: Former Smoker - Medications Home Medications: Home Medications Medication Instructions Recorded Confirmed Last Taken Type HYDROcodone/APAP 5-325 [[place] 2 each PO Q6H PRN #14 tablet 12/26/18 Unknown Rx 5-325 mg TAB] Nicotine [Habitrol] 14 mg TD QDAY #7 patch 12/26/18 Unknown Rx ED Physical Exam - General Limitations: No Limitations General appearance: alert, in no apparent distress - Head Head exam: Present: atraumatic, normocephalic, normal inspection - Eye Eye exam: Present: normal appearance, PERRL - ENT ENT exam: Present: normal exam, normal orophraynx, mucous membranes moist - Neck Neck exam: Present: normal inspection, full ROM. Absent: tenderness, meningismus, lymphadenopathy, thyromegaly - Respiratory Respiratory exam: Present: normal lung sounds bilaterally - Cardiovascular Cardiovascular Exam: Present: regular rate, normal rhythm, normal heart sounds - GI/Abdominal GI/Abdominal exam: Present: soft, tenderness (suprapubic tenderness). Absent: distended - External exam: Present: other (suprapubic catheter in place.) - Extremities Exam Extremities exam: Present: normal inspection, full ROM, normal capillary refill - Back Exam Back exam: Present: normal inspection, full ROM. Absent: tenderness, CVA tenderness (R), CVA tenderness (L), muscle spasm, paraspinal tenderness, vertebral tenderness - Neurological Exam Neurological exam: Present: alert, oriented X3, CN II-XII intact - Skin Skin exam: Present: warm, intact, normal color ED Course Vital Signs 12/29/18 12/29/18 12/29/18 19:08 19:11 19:15 Temperature 98.6 F Pulse Rate 63 74 91 H Respiratory 23 20 24 Rate Blood Pressure 137/86 137/69 O2 Sat by Pulse 99 97 Oximetry 12/29/18 12/29/18 12/29/18 19:27 19:30 19:45 Temperature Pulse Rate 61 66 Respiratory 18 17 13 Rate Blood Pressure 150/72 150/72 O2 Sat by Pulse 93 94 Oximetry 12/29/18 12/29/18 12/29/18 20:00 20:15 20:31 Temperature Pulse Rate 65 99 H 84 Respiratory 16 14 24 Rate Blood Pressure 127/75 127/75 180/95 O2 Sat by Pulse 96 96 93 Oximetry 12/29/18 12/29/18 12/29/18 20:45 21:00 21:15 Temperature Pulse Rate 71 83 69 Respiratory 20 14 16 Rate Blood Pressure 180/95 124/95 180/95 O2 Sat by Pulse 96 94 95 Oximetry 12/29/18 12/29/18 12/29/18 21:30 21:45 22:01 Temperature Pulse Rate 71 68 68 Respiratory 16 15 22 Rate Blood Pressure 116/77 116/77 133/79 O2 Sat by Pulse 95 96 93 Oximetry 12/29/18 12/29/18 12/29/18 22:15 22:30 22:45 Temperature Pulse Rate 63 69 67 Respiratory 16 12 19 Rate Blood Pressure 133/79 130/83 130/83 O2 Sat by Pulse 96 97 93 Oximetry 12/29/18 12/29/18 12/29/18 23:00 23:15 23:27 Temperature Pulse Rate 68 63 77 Respiratory 20 15 18 Rate Blood Pressure 130/74 130/74 130/74 O2 Sat by Pulse 93 94 95 Oximetry 12/29/18 12/29/18 12/30/18 23:30 23:45 00:01 Temperature Pulse Rate 71 115 H 63 Respiratory 18 18 18 Rate Blood Pressure 116/75 116/75 137/58 O2 Sat by Pulse 94 95 92 Oximetry 12/30/18 12/30/18 12/30/18 00:15 00:30 00:45 Temperature Pulse Rate 65 65 75 Respiratory 15 19 18 Rate Blood Pressure 116/75 125/74 125/74 O2 Sat by Pulse 95 92 95 Oximetry 12/30/18 12/30/18 12/30/18 01:00 01:15 01:31 Temperature Pulse Rate 63 65 70 Respiratory 13 21 26 H Rate Blood Pressure 121/72 121/72 172/85 O2 Sat by Pulse 96 97 94 Oximetry ED Medical Decision Making - Lab Data Result diagrams: 12/29/18 20:43 12/29/18 20:43 - Radiology Data Radiology results: report reviewed - Medical Decision Making Patient is 68 years old male with history of BPH who recently discharged from the hospital after he was admitted for acute urine retention and found to have new pneumoperitoneum which resolved by itself before discharge. Patient presented today with abdominal pain started last night, suprapubic in nature, patient stated that patient radiated down to his legs patient denied any fever, chills, nausea or vomiting. He stated that it hurt when he tried to urinate. Patient received morphine, Zofran and Zosyn. CT abdomen and pelvis showed possible small bowel obstruction and possible abscess to the right lower quadran t area. I discussed the patient is Dr. ASLEH, she advised to keep the patient nothing by mouth and will discuss the patient is Dr. Ramirez. I discussed the patient is Dr. Champagne, he agreed to admit the patient to medical service. Critical care attestation.: If time is entered above; I have spent that time in minutes in the direct care of this critically ill patient, excluding procedure time. ED Disposition Clinical Impression: Abdominal pain, Small bowel obstruction, Right lower quadrant abscess Disposition: 09 OP ADMIT IP TO THIS HOSP Is pt being admited?: Yes Condition: Stable Referrals: PRIMARY CARE, [Primary Care Provider] - 3-5 Days
[2018-12-29 20:51] LABS: Bacteria,Urine 1+ /HPF (Negative); Bilirubin,Urine NEG (Negative); Blood,Urine LG (Negative); Color,Urine Yellow (Yellow); Mucus,Urine FEW /HPF
[2018-12-29 20:52] LABS: RBC,Urine > 182.0 /HPF (0.0-6.0)
[2018-12-29 20:57] LABS: Basophils % (Auto) 0.3 % (0.0-1.8); Eosinophils # (Auto) 0.3 K/mm3 (0.0-0.4); Eosinophils % (Auto) 4.2 % (0.0-4.3); Hematocrit 37.3 % (35.5-45.6); Hemoglobin 12.7 gm/dl (11.8-15.2); Lymphocytes % (Auto) 13.2 % (13.4-35.0); Mean Corpuscular HGB Conc 34 % (32-34); Mean Corpuscular Volume 77 fl (84-94); Monocytes % (Auto) 12.6 % (0.0-7.3); Platelet Count 254 K/mm3 (140-440); Red Blood Count 4.84 M/mm3 (3.65-5.03); Red Cell Distribution Width 13.7 % (13.2-15.2)
[2018-12-29 21:06] LABS: INR 1.12 (0.87-1.13)
[2018-12-29 21:14] LABS: Alanine Aminotransferase 23 units/L (7-56); Albumin 3.1 g/dL (3.9-5); BUN/Creatinine Ratio 10; Blood Urea Nitrogen 11 mg/dL (9-20); Calcium 8.2 mg/dL (8.4-10.2); Hemolysis Index 7
[2018-12-29 21:15] LABS: Bilirubin,Direct < 0.2 mg/dL (0-0.2)
[2018-12-30] MEDS ORDERED: MORPHINE IV ONE (00:56)
--- NOTE | 2018-12-30 02:42 | Cat Scan Report ---
CT ABDOMEN AND PELVIS WITH CONTRAST HISTORY: Lower abdominal pain for one day with dysuria and penile/testicular pain. COMPARISON: CT of the abdomen and pelvis without contrast from 12/24/2018. TECHNIQUE: Axial, coronal and sagittal CT imaging of the abdomen and pelvis was performed after inje ction of 100 cc Omnipaque [address] scans at this location are performed using CT dose re duction for ALARA by means of automated exposure control. FINDINGS: Motion artifact limits the study. LOWER CHEST: There is a trace right pleural effusion with bibasilar atelectasis. The heart is normal in size without a pericardial effusion. LIVER: There is a stable posterior segment right hepatic lobe hemangioma. No additional significant a bnormality. BILIARY: No significant abnormality. PANCREAS: No significant abnormality. SPLEEN: No significant abnormality. ADRENALS: No significant abnormality. KIDNEYS AND URETERS: Moderate right hydroureteronephrosis is developed in the interval without visual ization of a stone or distinct obstructive mass. No suspicious renal lesions are seen. A subcentimete r left upper renal pole cyst is stable. There is mild left hydroureteronephrosis that was not seen pr eviously without an associated stone or mass. GI TRACT: No significant abnormality of the stomach. The previously seen bowel loops located within a nd adjacent to the previously described right inguinal hernia are now hyperemic and fluid filled with mild dilatation. The remainder of the small bowel is unremarkable. No significant abnormality of the colon. Unremarkable appendix. PERITONEUM: There is a new fluid collection located in the right lower quadrant adjacent to the abnor mal small bowel loops measuring 3.5 x 3.1 cm in axial dimensions on image 62 of series 4. Another sma ll pocket of fluid is located inferiorly and medially on image 71 of series 4 measuring 2.6 x 2.3 cm. No free fluid or free air is seen. LYMPH NODES: No significant adenopathy. VASCULATURE: No significant abnormality. URINARY BLADDER: Drained by a Mei catheter. REPRODUCTIVE ORGANS: There is similar enlargement of the prostate gland with a surgical drain now see n within/immediately adjacent to the prostate gland. ADDITIONAL FINDINGS: None. SKELETAL SYSTEM: No significant abnormality. IMPRESSION: 1. Interval development of inflamed small bowel loops within and immediately adjacent to the right in guinal hernia seen on the prior study. An evolving small bowel obstruction cannot be excluded. 2. Interval development of an abscess versus postoperative fluid collection along the right lower norma ant as above. 3. Bilateral hydroureteronephrosis, right greater than left, without visualization of an obstructive stone/mass may be due to urinary retention/reflux or obstruction by the enlarged prostate gland. 4. Interval surgical changes along the prostate gland. Signer Name: Canelo Piña MD Signed: 12/30/2018 2:38 AM Workstation Name: [id number]
[2018-12-30] MEDS ORDERED: ZOSYN/NS 3.375GM/50ML 3.375 GM/50 ML BAG IV ONE (03:29)
[2018-12-30] MEDS ORDERED: DILAUDID ONE (03:59)
[2018-12-30] MEDS ORDERED: ZOFRAN IV PRN (04:08)
[2018-12-30] MEDS ORDERED: DILAUDID IV ONE (04:09)
[2018-12-30] MEDS ORDERED: TYLENOL PR PRN (04:09)
[2018-12-30] MEDS: DILAUDID IV SCH ×3 (05:21→12:37)
[2018-12-30] MEDS: FLAGYL 500 MG/100 ML 500 MG/100 ML BAG IV SCH ×3 (06:05→22:59)
--- NOTE | 2018-12-30 06:13 | History and Physical Report ---
CHIEF COMPLAINT: Abdominal pain. Other complaint includes dysuria. HISTORY OF PRESENT ILLNESS: The patient is a 68-year-old male who presented to the Emergency Room with right lower quadrant abdominal pain, also patient has history of urinary retention and was recently discharged from the hospital after he was treated for urinary retention and pneumoperitoneum which resolved by itself. The patient came in this time around with abdominal pain that radiates down his leg. There was no history of fever or chills. No history of nausea or vomiting and the patient also complains of terrible pain when he tries to urinate. PAST MEDICAL HISTORY: Pertinent for kidney stones. Also past medical history is pertinent for urinary retention. PAST SURGICAL HISTORY: Pertinent for suprapubic catheter placement. FAMILY HISTORY: Noncontributory. SOCIAL HISTORY: The patient is a former cigarette smoker. Does not smoke anymore. Does not drink alcohol or use illicit drugs. MEDICATIONS: The patient is on [place] 5/325 two by mouth every 6 hours as needed for pain and nicotine patch 14 mg transdermal every day. ALLERGIES: THE PATIENT IS ALLERGIC TO POLLEN EXTRACTS. REVIEW OF SYSTEMS: CONSTITUTIONAL: There is no fever, no chills, no diaphoresis. HEENT: There is no headache or sore throat. CARDIOVASCULAR SYSTEM: There is no chest pain or orthopnea. RESPIRATORY SYSTEM: There is no shortness of breath or cough. GASTROINTESTINAL SYSTEM: Abdominal pain present. No nausea, no vomiting, no diarrhea or constipation. NEUROLOGICAL SYSTEM: There is no numbness, no dizziness, no altered mental status. MUSCULOSKELETAL SYSTEM: There is no joint pain or swelling. DERMATOLOGICAL SYSTEM: There is no skin rash or itching. GENITOURINARY SYSTEM: There is history of dysuria, but no hematuria and no flank pain. Rest of system review is normal. PHYSICAL EXAMINATION: GENERAL: At the time of exam, the patient was found to be alert, oriented x 3, in mild to moderate distress due to painful micturition. VITAL SIGNS: Shows temperature of 98.6 degrees Fahrenheit, pulse of 63, respirations 23, blood pressure 137/86, O2 sat of 99% on room air. HEENT: Showed pupils to be equal, round, reactive to light and accommodating. Extraocular muscles are intact. NECK: Supple with JVD or carotid bruit. CARDIOVASCULAR: Show normal first and second heart sounds with no gallops or murmurs. RESPIRATORY SYSTEM: Show good air entry on both sides of the lungs with no abnormal breath sounds. GASTROINTESTINAL SYSTEM: Show abdomen to be full, soft with tenderness in the right lower quadrant area with no rigidity and no guarding, with no rebound tenderness elicited. Bowel sounds are hyperactive. NEUROLOGICAL SYSTEM: Show no focal deficit. MUSCULOSKELETAL SYSTEM: Show no joint swelling. DERMATOLOGICAL SYSTEM: Show no skin rash. GENITOURINARY SYSTEM: Show Mei catheter in place. There is no costovertebral angle tenderness. PERTINENT LABORATORY DATA AND IMAGING STUDIES: The patient had CT of the abdomen and pelvis with contrast done that shows interval development of inflamed small bowel loops which ____ adjacent to the right inguinal hernia seen on the prior study and evolving small bowel obstruction cannot be excluded according to the reading. There is finding of an abscess based on postoperative fluid collection along the right lower quadrant and there is bilateral hydroureteronephrosis, right greater than left without visualization of an obstructive stone or mass. There is also a finding of interval surgical changes along the prostate gland. Lab results, the patient's CBC showed normal white count, normal hemoglobin and normal hematocrit with CBC differential showing elevated monocyte count of 12.6. The patient's chemistry shows slight decrease in sodium level of 135 with slightly low calcium level of 8.2. The patient's urinalysis show large urine leukocyte esterase and yellow, slightly cloudy urine. Also, urine wbc is high with a value of 28 and urine rbc is high with a value of greater than 182 and there is 1+ bacteria with few yeast budding. DIAGNOSES: 1. Small bowel obstruction. 2. Right lower quadrant abdominal abscess. 3. Urinary retention. PLAN OF CARE: 1. The patient will be admitted to medical/surgical jones. 2. The patient will remain n.p.o. until seen by the surgeon. 3. The patient will continue surgical consult with ____ as requested by the Emergency Room physician. 4. The patient will have Urology consult with Dr. Dexter because of dysuria. 5. The patient will be on IV metronidazole 500 mg q.8 hours and IV Zosyn 3.375 grams q.8 hours. 6. The patient will be on IV Dilaudid 0.5 mg q.4 hours as needed for pain and IV Zofran 4 mg every 8 hours as needed for nausea and vomiting. 7. The patient will be on Tylenol 650 mg rectally every 4 hours as needed for fever and headache. 8. The patient's DVT prophylaxis will be through sequential compressive device. JOB# [id number] OCN/NTS
--- NOTE | 2018-12-30 07:48 | Event Note ---
Date: 12/30/[address] Duffy this morning. I will see the patient after surgery today. Based on ED H&P, sounds like Urology issue. Full consult to follow.
[2018-12-30] MEDS ORDERED: ZOSYN/NS 3.375GM/50ML 3.375 GM/50 ML BAG IV SCH (10:00)
[2018-12-30] MEDS: HABITROL TD SCH (10:50)
[2018-12-30] MEDS ORDERED: ZOSYN/NS 4.5GM/100ML 4.5 GM/100 ML VIAL IV SCH (12:00)
--- NOTE | 2018-12-30 12:35 | Consultation ---
History of Present Illness - Reason for Consult Consult date: 12/30/18 - History of Present Illness Patient is 68 years old male with history of BPH who recently discharged from the hospital after he was admitted for acute urine retention and found to have new pneumoperitoneum which resolved by itself before discharge. Patient presented today with abdominal pain started last night, suprapubic in nature, patient stated that patient radiated down to his legs patient denied any fever, chills, nausea or vomiting. He stated that it hurt when he tried to urinate. cysto spt (12-24-18---Dr. Webb) creatinine 0.8-1.1 (normal) CTAPbilat hydro (chronic), BPH, small hernia small fluid collection (abscess--low probability) abd soft urine clear( spt clamped, glez draining) A/P retention keep spt no surgical intervention needed recommend gen surg eval ditropan for bladder spasm ok to dc home from gu standpoint f/u in office Medications and Allergies Allergies Allergy/AdvReac Type Severity Reaction Status Date / Time pollen extracts Allergy Mild Itching Verified 06/09/17 22:48 Home Medications Medication Instructions Recorded Confirmed Last Taken Type HYDROcodone/APAP 5-325 [[place] 2 each PO Q6H PRN #14 tablet 12/26/18 12/30/18 Unknown Rx 5-325 mg TAB] Nicotine [Habitrol] 14 mg TD QDAY #7 patch 12/26/18 12/30/18 Unknown Rx Active Meds: Active Medications Acetaminophen (Tylenol) 650 mg MT Q4H PRN PRN Reason: Fever >101 Hydromorphone HCl (Dilaudid) 0.5 mg IV Q4H [facility] Last Admin: 12/30/18 08:45 Dose: 0.5 mg Documented by: Metronidazole (Flagyl 500 Mg/100 Ml) 500 mg in 100 mls @ 100 mls/hr IV Q8HR CARYL; Protocol Last Admin: 12/30/18 06:05 Dose: 100 mls/hr Documented by: Piperacillin Sod/Tazobactam Sod (Zosyn/Ns 4.5gm/100ml) 4.5 gm in 100 mls @ 200 mls/hr IV Q8HR CARYL Nicotine (Habitrol) 14 mg TD QDAY [facility] Last Admin: 12/30/18 10:50 Dose: Not Given Documented by: Ondansetron HCl (Zofran) 4 mg IV Q8H PRN PRN Reason: Nausea And Vomiting Exam - Constitutional Vitals: Temp Pulse Resp BP Pulse Ox 98.9 F 70 18 123/73 91 12/30/18 10:17 12/30/18 10:17 12/30/18 10:17 12/30/18 10:17 12/30/18 10:17 Results - Labs CBC & Chem 7: 12/29/18 20:43 12/29/18 20:43 Labs: Abnormal lab results 12/29/18 12/29/18 12/29/18 Range/Units 20:33 20:43 20:43 MCV 77 L (84-94) fl MCH 26 L (28-32) pg Lymph % (Auto) 13.2 L (13.4-35.0) % [place] % (Auto) 12.6 H (0.0-7.3) % Lymph # 1.0 L (1.2-5.4) K/mm3 [place] # 1.0 H (0.0-0.8) K/mm3 Sodium 135 L (137-145) mmol/L Glucose 109 H (75-100) mg/dL Calcium 8.2 L (8.4-10.2) mg/dL Albumin 3.1 L (3.9-5) g/dL Urine WBC (Auto) 28.0 H (0.0-6.0) /HPF
[2018-12-30] MEDS ORDERED: DULCOLAX PO PRN (13:22)
[2018-12-30] MEDS ORDERED: CEPHULAC PO ONE (13:22)
--- NOTE | 2018-12-30 15:57 | Consultation ---
History of Present Illness Consult date: 12/30/18 Requesting physician: RAKESH MYERS Chief complaint: continued bladder pain - History of present illness History of present illness: 68yo M who is well known me as we last saw him when he came in for his urologic issue. Via the phone interpreter translator (#[id number]) and his daughter, he reports that his pelvic pain never went away. Everytime he urinates, he has terrible pain. The pain meds that he was sent home on did not work. Therefore, he returned due to unresolved pain. In between urination periods, he has no pain. The rest of his abdomen does not hurt. He has minimal discomfort in the RLQ. He has been eating well with no F/C/N/V. Past History Past Medical History: other (BPH, renal stones, h/o urinary retention) Past Surgical History: Other (TURP, SP tube placement, kidney stone procedure) Social history: smoking (stopped) Family history: no significant family history Medications and Allergies Allergies Allergy/AdvReac Type Severity Reaction Status Date / Time pollen extracts Allergy Mild Itching Verified 06/09/17 22:48 Home Medications Medication Instructions Recorded Confirmed Last Taken Type HYDROcodone/APAP 5-325 [[place] 2 each PO Q6H PRN #14 tablet 12/26/18 12/30/18 Unknown Rx 5-325 mg TAB] Nicotine [Habitrol] 14 mg TD QDAY #7 patch 12/26/18 12/30/18 Unknown Rx Active Meds: Active Medications Acetaminophen (Tylenol) 650 mg MT Q4H PRN PRN Reason: Fever >101 Acetaminophen/Hydrocodone Bitart ([place] 5/325) 2 each PO Q6H PRN PRN Reason: Pain, Moderate (4-6) Bisacodyl (Dulcolax) 10 mg PO QDAY PRN PRN Reason: Constipation Metronidazole (Flagyl 500 Mg/100 Ml) 500 mg in 100 mls @ 100 mls/hr IV Q8HR CARYL; Protocol Last Admin: 12/30/18 13:05 Dose: 100 mls/hr Documented by: Piperacillin Sod/Tazobactam Sod (Zosyn/Ns 4.5gm/100ml) 4.5 gm in 100 mls @ 200 mls/hr IV Q8HR [facility] Last Admin: 12/30/18 12:39 Dose: 200 mls/hr Documented by: Nicotine (Habitrol) 14 mg TD QDAY [facility] Last Admin: 12/30/18 10:50 Dose: Not Given Documented by: Ondansetron HCl (Zofran) 4 mg IV Q8H PRN PRN Reason: Nausea And Vomiting Oxybutynin Chloride (Ditropan Xl) 5 mg PO QDAY [facility] Review of Systems - Constitutional no fever, no chills - Cardiovascular no chest pain - Respiratory no shortness of breath - Gastrointestinal constipation, other (pelvic pain), no nausea, no vomiting - Genitourinary dysuria, urinary retention - Integumentary no rash, no redness, no wounds Exam Vital Signs Pulse Resp 63 23 12/29/18 19:08 12/29/18 19:08 - General physical appearance Positive: no distress, other (has intermittent episode of severe pain. ) - Eyes Positive: normal occular movement - Respiratory Positive: normal expansion, normal respiratory effort - Abdomen Abdomen: Present: soft, tender (minimal in RLQ. Mainly suprapubic area. Rest of abdomen benign). Absent: distended, guarding, rigid - Integumentary no rash, no growths, no abnormal pigmentation - Neurologic Neurologic: alert and oriented to time, place and person, other (difficulty hearing) - Psychiatric Psychiatric: cooperative Results - Labs 12/29/18 20:43 12/29/18 20:43 Abnormal lab results 12/29/18 12/29/18 12/29/18 Range/Units 20:33 20:43 20:43 MCV 77 L (84-94) fl MCH 26 L (28-32) pg Lymph % (Auto) 13.2 L (13.4-35.0) % [place] % (Auto) 12.6 H (0.0-7.3) % Lymph # 1.0 L (1.2-5.4) K/mm3 [place] # 1.0 H (0.0-0.8) K/mm3 Sodium 135 L (137-145) mmol/L Glucose 109 H (75-100) mg/dL Calcium 8.2 L (8.4-10.2) mg/dL Albumin 3.1 L (3.9-5) g/dL Urine WBC (Auto) 28.0 H (0.0-6.0) /HPF Diabetes panel 12/29/18 Range/Units 20:43 Sodium 135 L (137-145) mmol/L Potassium 3.9 (3.6-5.0) mmol/L Chloride 99.3 (98-107) mmol/L Carbon Dioxide 25 (22-30) mmol/L BUN 11 (9-20) mg/dL Creatinine 1.1 (0.8-1.5) mg/dL Glucose 109 H (75-100) mg/dL Calcium 8.2 L (8.4-10.2) mg/dL AST 27 (5-40) units/L ALT 23 (7-56) units/L Alkaline Phosphatase 64 (35-129) units/L Total Protein 6.9 (6.3-8.2) g/dL Albumin 3.1 L (3.9-5) g/dL Calcium panel 12/29/18 Range/Units 20:43 Calcium 8.2 L (8.4-10.2) mg/dL Albumin 3.1 L (3.9-5) g/dL Pituitary panel 12/29/18 Range/Units 20:43 Sodium 135 L (137-145) mmol/L Potassium 3.9 (3.6-5.0) mmol/L Chloride 99.3 (98-107) mmol/L Carbon Dioxide 25 (22-30) mmol/L BUN 11 (9-20) mg/dL Creatinine 1.1 (0.8-1.5) mg/dL Glucose 109 H (75-100) mg/dL Calcium 8.2 L (8.4-10.2) mg/dL Adrenal panel 12/29/18 Range/Units 20:43 Sodium 135 L (137-145) mmol/L Potassium 3.9 (3.6-5.0) mmol/L Chloride 99.3 (98-107) mmol/L Carbon Dioxide 25 (22-30) mmol/L BUN 11 (9-20) mg/dL Creatinine 1.1 (0.8-1.5) mg/dL Glucose 109 H (75-100) mg/dL Calcium 8.2 L (8.4-10.2) mg/dL Total Bilirubin 0.30 (0.1-1.2) mg/dL AST 27 (5-40) units/L ALT 23 (7-56) units/L Alkaline Phosphatase 64 (35-129) units/L Total Protein 6.9 (6.3-8.2) g/dL Albumin 3.1 L (3.9-5) g/dL - Imaging CT scan - abdomen: report reviewed, image reviewed CT scan - pelvis: report reviewed, image reviewed Assessment and Plan - Patient Problems (1) Abdominal pain Current Visit: Yes Status: Acute Qualifiers: Abdominal location: lower abdomen, unspecified Qualified Code(s): R10.30 - Lower abdominal pain, unspecified Plan to address problem: Pt stable. Pt continues to have painful bladder spasms. The fluid collections in the RLQ are most likely urine from the injury and leakage. They are probably causing an inflammatory reaction. He is not acting like he has an abscess. No intervention needed. Rec: 1) Consider attaching the glez bag to the SP catheter. I witnessed the urine coming out around the glez catheter. It may not be draining properly which is causing his pain. 2) Diet as tolerated. 3) may d/c from my standpoint when his pain is better. 4) laxative for constipation - I will order. f/u prn Discussed with Dr. Myers Time=45min
[2018-12-30] MEDS ORDERED: DULCOLAX PO ONE (16:05)
--- NOTE | 2018-12-30 16:40 | Progress Note ---
Assessment and Plan Assessment and plan: Patient Problems (1) Abdominal pain Current Visit: Yes Status: Acute Qualifiers: Abdominal location: lower abdomen, unspecified Qualified Code(s): R10.30 - Lower abdominal pain, unspecified Plan to address problem: Pt stable. Pt continues to have painful bladder spasms. The fluid collections in the RLQ are most likely urine from the injury and leakage. They are probably causing an inflammatory reaction. He is not acting like he has an abscess. No intervention needed. Rec: 1) Consider attaching the glez bag to the SP catheter. I witnessed the urine coming out around the glez catheter. It may not be draining properly which is causing his pain. 2) Diet as tolerated. 3) may d/c from my standpoint when his pain is better. 4) laxative for constipation - I will order. f/u prn Discussed with Dr. Myers Time=45min Hospitalist Physical - Constitutional Vitals: Temp Pulse Resp BP Pulse Ox 99.5 F 87 18 104/60 91 12/30/18 13:55 12/30/18 13:55 12/30/18 13:55 12/30/18 13:55 12/30/18 13:55 Results - Labs CBC & Chem 7: 12/29/18 20:43 12/29/18 20:43 Labs: Laboratory Last Values WBC 7.8 K/mm3 (4.5-11.0) 12/29/18 20:43 RBC 4.84 M/mm3 (3.65-5.03) 12/29/18 20:43 Hgb 12.7 gm/dl (11.8-15.2) 12/29/18 20:43 Hct 37.3 % (35.5-45.6) 12/29/18 20:43 MCV 77 fl (84-94) L 12/29/18 20:43 MCH 26 pg (28-32) L 12/29/18 20:43 MCHC 34 % (32-34) 12/29/18 20:43 RDW 13.7 % (13.2-15.2) 12/29/18 20:43 Plt Count 254 K/mm3 (140-440) 12/29/18 20:43 Lymph % (Auto) 13.2 % (13.4-35.0) L 12/29/18 20:43 [place] % (Auto) 12.6 % (0.0-7.3) H 12/29/18 20:43 Eos % (Auto) 4.2 % (0.0-4.3) 12/29/18 20:43 Baso % (Auto) 0.3 % (0.0-1.8) 12/29/18 20:43 Lymph # 1.0 K/mm3 (1.2-5.4) L 12/29/18 20:43 [place] # 1.0 K/mm3 (0.0-0.8) H 12/29/18 20:43 Eos # 0.3 K/mm3 (0.0-0.4) 12/29/18 20:43 Baso # 0.0 K/mm3 (0.0-0.1) 12/29/18 20:43 Seg Neutrophils % 69.7 % (40.0-70.0) 12/29/18 20:43 Seg Neutrophils # 5.4 K/mm3 (1.8-7.7) 12/29/18 20:43 PT 14.1 Sec. (12.2-14.9) 12/29/18 20:43 INR 1.12 (0.87-1.13) 12/29/18 20:43 Sodium 135 mmol/L (137-145) L 12/29/18 20:43 Potassium 3.9 mmol/L (3.6-5.0) 12/29/18 20:43 Chloride 99.3 mmol/L (98-107) 12/29/18 20:43 Carbon Dioxide 25 mmol/L (22-30) 12/29/18 20:43 15 mmol/L 12/29/18 20:43 BUN 11 mg/dL (9-20) 12/29/18 20:43 1.1 mg/dL (0.8-1.5) 12/29/18 20:43 Estimated GFR > 60 ml/min 12/29/18 20:43 10 % 12/29/18 20:43 Glucose 109 mg/dL (75-100) H 12/29/18 20:43 Calcium 8.2 mg/dL (8.4-10.2) L 12/29/18 20:43 0.30 mg/dL (0.1-1.2) 12/29/18 20:43 < 0.2 mg/dL (0-0.2) 12/29/18 20:43 0.1 mg/dL 12/29/18 20:43 AST 27 units/L (5-40) 12/29/18 20:43 ALT 23 units/L (7-56) 12/29/18 20:43 64 units/L (35-129) 12/29/18 20:43 6.9 g/dL (6.3-8.2) 12/29/18 20:43 3.1 g/dL (3.9-5) L 12/29/18 20:43 0.8 % 12/29/18 20:43 28 units/L (13-60) 12/29/18 20:43 Yellow (Yellow) 12/29/18 20:33 Slightly-cloudy (Clear) 12/29/18 20:33 7.0 (5.0-7.0) 12/29/18 20:33 Ur Specific [place] 1.012 (1.003-1.030) 12/29/18 20:33 100 mg/dl mg/dL (Negative) 12/29/18 20:33 Neg mg/dL (Negative) 12/29/18 20:33 Tr mg/dL (Negative) 12/29/18 20:33 Lg (Negative) 12/29/18 20:33 Neg (Negative) 12/29/18 20:33 Neg (Negative) 12/29/18 20:33 2.0 mg/dL (<2.0) 12/29/18 20:33 Ur Leukocyte Esterase Lg (Negative) 12/29/18 20:33 28.0 /HPF (0.0-6.0) H 12/29/18 20:33 > 182.0 /HPF (0.0-6.0) 12/29/18 20:33 U Epithel Cells (Auto) < 1.0 /HPF (0-13.0) 12/29/18 20:33 1+ /HPF (Negative) 12/29/18 20:33 Few /HPF 12/29/18 20:33 Few /HPF 12/29/18 20:33 Active Medications - Current Medications Current Medications: Generic Name Dose Route Start Last Admin Trade Name Freq PRN Reason Stop Dose Admin Acetaminophen 650 mg 12/30/18 04:09 Tylenol NM Q4H PRN Fever >101 Acetaminophen/Hydrocodone Bitart 2 each 12/30/18 13:23 [place] 5/325 PO Q6H PRN Pain, Moderate (4-6) Bisacodyl 10 mg 12/30/18 13:22 Dulcolax PO QDAY PRN Constipation Metronidazole 500 mg in 100 mls @ 100 mls/hr 12/30/18 06:00 12/30/18 13:05 Flagyl 500 Mg/100 Ml IV 100 mls/hr Q8HR CARYL Administration Protocol Piperacillin Sod/Tazobactam Sod 4.5 gm in 100 mls @ 200 mls/hr 12/30/18 12:00 12/30/18 12:39 Zosyn/Ns 4.5gm/100ml IV 200 mls/hr Q8HR CARYL Administration Nicotine 14 mg 12/30/18 10:00 12/30/18 10:50 Habitrol TD Not Given QDAY CARYL Ondansetron HCl 4 mg 12/30/18 04:08 Zofran IV Q8H PRN Nausea And Vomiting Oxybutynin Chloride 5 mg 12/31/18 10:00 Ditropan Xl PO QDAY CARYL
[2018-12-30] MEDS: NORCO 5/325 PO PRN ×2 (16:42→22:59)
--- NOTE | 2018-12-30 16:42 | Event Note ---
Date: 12/30/18 Patient seen and examine, case discussed with UROLOGY who was at bedside examining the patient. Patient started on Oxybutynin to assist with bladder Spams. Discussed also with General surgery, concerned if we should change the Mei to the second catheter for decompression of the bladder. Bladder scan ordered. Continue Abx therapy Per surgery, CT scan abnormality probably Urine accumulation, recommend repeat in a weeks.
[2018-12-30] MEDS: ROCEPHIN/NS 1 GM/50 ML 1 GM/50 ML BAG IV SCH (19:00)
[2018-12-30] MEDS ORDERED: NORCO 5/325 PO PRN (23:12)
[2018-12-31] MEDS: NORCO 5/325 PO PRN ×2 (01:30→07:46)
[2018-12-31] MEDS: FLAGYL 500 MG/100 ML 500 MG/100 ML BAG IV SCH (06:27)
[2018-12-31 08:19] VITALS: BP 129/73
[2018-12-31] MEDS: HABITROL TD SCH ×2 (09:42→09:44)
--- NOTE | 2018-12-31 09:42 | Discharge Summary ---
Providers - Providers Date of Admission: 12/30/18 04:03 Attending physician: RAKESH MCMAHON MD 12/30/18 03:28 Consult to Physician [CONS] Stat Comment: MISAEL Consulting Provider: NNEKA SALEH Physician Instructions: WAS SEEN BY PER . Reason For Exam: abdominal pain, possible SBO, ABSCESS 12/30/18 06:00 Consult to Physician [CONS] Routine Comment: MISAEL Consulting Provider: ADALBERTO WHITFIELD Physician Instructions: CONSULT WAS CALLED TO /[facility] Reason For Exam: DYSURIA Primary care physician: [employer] Hospitalization Condition: Stable Hospital course: Acute Cystitis Bladder Spasm Follow with Urology outpatient Give time for the oxybutynin to work Urology clearly stated what will be the plan outpatient Disposition: [id number] HOME UNDER HOME [facility] Core Measure Documentation - Palliative Care Palliative Care/ Comfort Measures: Not Applicable Exam - Constitutional Vitals: Temp Pulse Resp BP Pulse Ox 98.0 F 61 20 129/73 97 12/31/18 08:00 12/31/18 08:00 12/31/18 08:00 12/31/18 08:00 12/31/18 08:00 Plan Activity: advance as tolerated, fall precautions Diet: low fat Special Instructions: record daily BP diary Follow up with: PRIMARY MD YOUNG [Primary Care Provider] - 3-5 Days ADALBERTO WHITFIELD MD [Staff Physician] - 7 Days JACOB VELEZ MD [Staff Physician] - 7 Days Prescriptions: Ciprofloxacin HCl [Ciprofloxacin TAB] 500 mg PO Q12HR #10 tab Oxybutynin Xl [Ditropan Xl] 5 mg PO QDAY #30 tablet Bisacodyl [Dulcolax tab] 10 mg PO QDAY PRN #30 tablet PRN Reason: Constipation HYDROcodone/APAP 5-325 [[place] 5-325 mg TAB] 1 each PO Q6H PRN #14 tablet PRN Reason: Pain, Moderate (4-6)
[2018-12-31] MEDS: ROCEPHIN/NS 1 GM/50 ML 1 GM/50 ML BAG IV SCH (09:43)
[2018-12-31] MEDS ORDERED: DITROPAN XL PO SCH (10:00)
== END 2018-12-31 12:55 | disposition home or self-care (01) | DRG 698 ==
LOC: ED 19:02 → 2B-ACE 12-30 04:03
PROVIDERS: ADMIT Internal Medicine; ATTEND Internal Medicine
DX: N32.89 Other specified disorders of bladder (principal); K65.1 Peritoneal abscess; K56.609 Unspecified intestinal obstruction, unspecified as to partial versus complete obstruction; N30.00 Acute cystitis without hematuria; N40.1 Benign prostatic hyperplasia with lower urinary tract symptoms; R33.8 Other retention of urine; Z87.891 Personal history of nicotine dependence; Z79.899 Other long term (current) drug therapy; Z87.442 Personal history of urinary calculi
CPT/HCPCS: 36415; 74177; 80048; 80076; 81001; 83690; 85025; 85610; 87040; 87086; 87116; 96365; 96375; 96376; G0378; J0696; J1170; J2270; J2405; J2543; Q9967

== ENCOUNTER 2019-08-14 10:58 | Outpatient (CLI) | payer MEDICARE ==
--- NOTE | 2019-08-14 12:39 | Cat Scan Report ---
CT abdomen pelvis wo con INDICATION: R39.10Other difficulties with micturition. TECHNIQUE: All CT scans at this location are performed using the following dose modulation technique: Automated exposure control. Helical slices were obtained through the abdomen and pelvis. No contrast is adminis tered. COMPARISON: CT scan dated 12/30/2018 FINDINGS: Abdomen: No acute abnormality is seen in the lower chest. Hemangioma in the right lobe of the liver a ppears unchanged. The spleen, pancreas, adrenal glands, and left kidney show no acute abnormality. Hy droureteronephrosis on the right appears unchanged from the prior exam. There is no inflammatory angel ge. No renal or ureteral calculi are seen. Pelvis: The prostate gland is enlarged and impinges upon the bladder. There is no adenopathy. On review of bone windows, no acute osseous abnormalities are seen. Degenerative changes are noted in the hips. These are stable. IMPRESSION: 1. There is persistent right hydroureteronephrosis. The prostate gland is significantly enlarged. Pre viously noted mild left hydronephrosis has resolved in the interval. Right hydronephrosis may be seco ndary to reflux/urinary retention related to prostate. There are no renal or ureteral calculi. Signer Name: Chaim Gonzalez MD Signed: 08/14/2019 12:34 PM Workstation Name: [id number]
== END 2019-08-14 10:59 | disposition home or self-care (01) ==
LOC: CT 10:58
PROVIDERS: ATTEND Urology
DX: R39.198 Other difficulties with micturition (principal); N13.39 Other hydronephrosis
CPT/HCPCS: 74176